=== PATIENT | male | born 1955 | race Asian ===

== ENCOUNTER 2021-05-15 10:16 | Outpatient (REF) | payer OTHER, SELFPAY ==
[2021-05-15 10:39] LABS: Basophils Percent Auto 0.9 % (0-2); Eosinophils Absolute Auto 0.1 X10*3/uL (0.0-0.4); Eosinophils Percent Auto 2.2 % (0-4); Hematocrit 44.9 % (42-52); Hemoglobin 15.2 g/dl (14.0-18.0); Imm Gran Abs Auto 0.02 X10*3/uL (0.00-0.03); Imm Gran Pct Auto 0.4 % (0.0-0.4); Lymphocytes Percent Auto 22.5 % (20-40); MANUAL DIFF FLAG NO; Mean Corpuscular HGB Conc 33.9 g/dl (31.0-36.0); Mean Corpuscular Hemoglobin 30.3 pg (27.0-33.0); Mean Corpuscular Volume 89.6 fL (80-98); Mean Platelet Volume 9.7 fL (9.4-12.4); Monocytes Absolute Auto 0.3 X10*3/uL (0.1-1.2); Monocytes Percent Auto 7.3 % (2-11); Neutrophils Percent Auto 66.7 % (45-73); Platelet Count 159 X10*3/uL (160-400); Red Blood Count 5.01 X10*6/uL (4.60-5.80); Red Cell Distribution Width 12.3 % (11.0-16.0); White Blood Count 4.5 X10*3/uL (4.8-10.8)
[2021-05-15 10:58] LABS: Appearance Urine CLEAR; Color Urine YELLOW; Glucose Urine UA NEG (NEG); Leukocyte Esterase Urine NEG (NEG); Nitrite Urine NEG (NEG); PH 6.5 (5.0-8.0); Specific Gravity - Urine <= 1.005 (1.005-1.025); Urine Blood NEG (NEG); Urine Ketones NEG (NEG); Urine Protein NEG (NEG-TRACE)
[2021-05-15 11:18] LABS: Alanine Aminotransferase 47 U/L (0-40); Albumin Level 4.7 g/dL (3.5-5.0); Alkaline Phosphatase 65 U/L (39-117); Anion Gap 10 (12-20); Aspartate Amino Transferase 33 U/L (5-37); Bilirubin Total 0.6 mg/dL (0.0-1.0); Blood Urea Nitrogen 13 mg/dL (9-16); Calcium 9.4 mg/dL (8.4-10.2); Carbon Dioxide 31 mmol/L (22-29); Chloride 103 mmol/L (96-108); Cholesterol 164 mg/dL; Estimated Glomerular Filt Rate > 60; Glucose Fasting 105 mg/dL (60-99); HDL Cholesterol 40 mg/dL; LDL Cholesterol Calculated 104 mg/dl; Sodium 140 mmol/L (135-145); Total Protein 7.7 g/dL (6.5-8.0); Triglycerides 101 mg/dL
[2021-05-15 11:39] LABS: Prostate Specific Antigen 1.64 ng/mL (<0.05-4.0); TSH reflex Free T4 0.56 uIU/mL (0.32-4.0); Vitamin D 25-OH Total 24.8 ng/mL (>30)
== END 2021-05-15 10:17 | disposition home or self-care (01) ==
LOC: HO.LAB 10:16
PROVIDERS: PCP Internal Medicine; Visit Provider Internal Medicine
DX: Z12.5 Encounter for screening for malignant neoplasm of prostate (principal); I10 Essential (primary) hypertension; E78.00 Pure hypercholesterolemia, unspecified; R35.0 Frequency of micturition; E55.9 Vitamin D deficiency, unspecified
CPT/HCPCS: 36415; 80053; 80061; 81003; 82306; 84153; 84443; 85025

== ENCOUNTER 2021-05-30 13:47 | Emergency (ER) | payer OTHER, SELFPAY ==
--- NOTE | ~2021-05-30 | XR_ITS ---
EXAMINATION: XR ABDOMEN KUB CLINICAL INDICATION: Constipation, incomplete emptying COMPARISON: None TECHNIQUE: AP view of the abdomen. FINDINGS: The bowel gas pattern is normal with no evidence of ileus or obstruction. No unusual soft tissue calcifications are noted. The bones are unremarkable. Moderate amount of stool within the right colon. XR/XR KUB IMPRESSION: Moderate amount of stool in the right colon.
[2021-05-30 17:17] VITALS: BP 169/107; PULSE 74; RESP 16; TEMP 37.1; O2SAT 100; BMI 23.5
[2021-05-30 18:17] LABS: MANUAL DIFF FLAG NO
[2021-05-30 18:36] LABS: Alanine Aminotransferase 52 U/L (0-40); Albumin Level 4.7 g/dL (3.5-5.0); Alkaline Phosphatase 64 U/L (39-117); Anion Gap 11 (12-20); Aspartate Amino Transferase 32 U/L (5-37); Bilirubin Direct 0.3 mg/dL (0.0-0.5); Bilirubin Total 0.7 mg/dL (0.0-1.0); Blood Urea Nitrogen 15 mg/dL (9-16); Calcium 9.3 mg/dL (8.4-10.2); Carbon Dioxide 27 mmol/L (22-29); Chloride 103 mmol/L (96-108); Estimated Glomerular Filt Rate > 60; Glucose Random 113 mg/dL (60-115); Lipase 39 U/L (8-78); Potassium 3.9 mmol/L (3.3-5.1); Sodium 137 mmol/L (135-145); Total Protein 7.8 g/dL (6.5-8.0)
[2021-05-30 18:39] LABS: Basophils Percent Auto 0.7 % (0-2); Eosinophils Absolute Auto 0.1 X10*3/uL (0.0-0.4); Eosinophils Percent Auto 1.4 % (0-4); Hematocrit 41.9 % (42-52); Imm Gran Abs Auto 0.04 X10*3/uL (0.00-0.03); Imm Gran Pct Auto 0.7 % (0.0-0.4); Lymphocytes Absolute Auto 1.1 X10*3/uL (1.2-4.9); Lymphocytes Percent Auto 18.2 % (20-40); Mean Corpuscular HGB Conc 35.8 g/dl (31.0-36.0); Mean Corpuscular Hemoglobin 31.7 pg (27.0-33.0); Mean Corpuscular Volume 88.6 fL (80-98); Mean Platelet Volume 10.5 fL (9.4-12.4); Monocytes Absolute Auto 0.5 X10*3/uL (0.1-1.2); Monocytes Percent Auto 8.6 % (2-11); Neutrophils Absolute Auto 4.1 X10*3/uL (2.0-8.3); Neutrophils Percent Auto 70.4 % (45-73); Platelet Count 141 X10*3/uL (160-400); Red Blood Count 4.73 X10*6/uL (4.60-5.80); Red Cell Distribution Width 12.3 % (11.0-16.0); White Blood Count 5.8 X10*3/uL (4.8-10.8)
[2021-05-30 18:40] LABS: Appearance Urine CLEAR; Color Urine YELLOW; Glucose Urine UA NEG (NEG); Leukocyte Esterase Urine NEG (NEG); Nitrite Urine NEG (NEG); UACC Culture Trigger NO; Urine Blood TRACE (NEG); Urine Ketones NEG (NEG); Urine Protein NEG (NEG-TRACE)
--- NOTE | 2021-05-30 18:52 | ED_ITS ---
HPI - General Adult General Chief complaint: General Medical Stated complaint: urinary issue Time Seen by Provider: 05/30/21 17:16 Source: patient Mode of arrival: ambulatory History of Present Illness HPI narrative: 65-year-old male with a past medical history appendectomy, left inguinal hernia repair, presenting to the ED complaining of urinary frequency, dysuria, rectal pain and sensation of incomplete bowel emptying x weeks. Also reports lower abdominal discomfort. Reports was seen by PCP and referred to GI but unable to see until next week. Denies fever, chills, nausea, vomiting, penile/scrotal pain, hemorrhoids, rectal bleeding/melena, diarrhea, hesitancy, penile discharge. Is minimally sexually active without concern for STI Related Data Previous Rx's Medication Instructions Recorded sennosides 8.6 mg tablet (senna) See Rx Instructions PO DAILY PRN 05/15/21 30 Days #60 tab mineral oil (Fleet Mineral Oil) 118 ml ME DAILY PRN #6384 ml 05/30/21 Allergies Allergy/AdvReac Type Severity Reaction Status Date / Time No Known Allergies Allergy Verified 05/15/21 10:01 [No Known Allergies*] Review of Systems Review of Systems: Constitutional: No Fever, No Chills, No Fatigue, No Malaise ENT/Mouth: No Ear Pain, No Nasal Congestion, No sore throat, No Rhinorrhea, No Swallowing Difficulty Eyes: No Eye Pain, No Discharge Cardiovascular: No Chest Pain, No SOB, No Dyspnea on Exertion, No Orthopnea Respiratory: No Cough, No Dyspnea Gastrointestinal: No Nausea, No Vomiting, No Diarrhea, + Constipation, + Abdominal pain Genitourinary: +Dysuria, + Urinary Frequency, No Hematuria, No Urinary Incontinence, No Urgency, No Flank Pain, No Urinary Flow Changes, No Hesitancy Musculoskeletal: No joint pain, No Myalgias, No Joint Swelling Skin: No Skin Lesions, No rash Neuro: No Weakness, No Numbness, No Paresthesias, No Loss of Consciousness, No Dizziness, No Headache Yes all other systems are reviewed and are negative [facility] Past Medical History Attestation statement: The following information was validated with the patient. Medical History Left foot pain Surgical History H/O colonoscopy H/O left inguinal hernia repair History of appendectomy Family History Family History Father Diabetes HTN (hypertension) Mother No problems noted. Social History Social History Housing: House Alcohol intake: never Patient Tobacco Use Status: Never used Tobacco Second Hand Smoke Exposure: No Use of substances other than those prescribed or required for medical reasons: No Advance Directives: No service: No Current occupational status: retired Physical Exam Vital Signs: Vital Signs: Last Vital Signs Temp 98.8 F 05/30/21 17:17 Pulse 54 05/30/21 19:11 Resp 15 05/30/21 19:11 BP 153/73 H 05/30/21 19:11 Pulse Ox 99 05/30/21 19:11 Body Mass Index 23.5 Const: General: cooperative, healthy appearing and no acute distress Orientation/consciousness: patient oriented x3 Limitations: no limitations HENMT: Head: Yes normal to inspection Ears: hearing grossly normal bilaterally General nose exam: Normal external nose present Face and sinus: Yes normal facial exam Eyes: General: appearance normal, both eyes and all related structures EOM: EOMs intact bilaterally Neck: Neck: Yes normal visual inspection Resp: Effort & Inspection: normal respiratory effort and no respiratory distress Cardio: Rate: regular rate Heart sounds: S1 normal heart sound present and S2 normal heart sound present GI: Inspection: Yes normal to inspection Palpation (GI): Soft to palpation, nontender, no guarding and not rigid Rectal Exam - Male: No decreased sphincter tone, Yes prostate normal, No Lesions present (GI), No Fistula present (GI), No Laceration(s) present (GI), No fecal impaction, No hemorrhoids and No tenderness : General: Yes no CVA tenderness Male General Exam: Yes normal external exam Penis: normal penis and uncircumcised Meatus: meatus normal Scrotum: scrotum normal and no scrotal swelling Testes: Testes normal and no testicular tenderness Back/Spine/Pelvis: Back: no CVA tenderness Skin: Rashes: no rashes Wounds: no wounds Neuro: General: patient oriented x3 Gait exam (Neuro): Normal gait present Extrem: General: Yes normal to inspection Course Course Course Narrative: -no leukocytosis. Labs otherwise unremarkable, UA negative XR KUB IMPRESSION: Moderate amount of stool in the right colon. >> patient given MiraLax. Results discussed including need follow-up with GI. He verbalized understanding feel safe for discharge home Medical Decision Making MDM Narrative Medical decision making narrative: 65-year-old male with a past medical history appendectomy, left inguinal hernia repair, presenting to the ED complaining of urinary frequency, dysuria, rectal pain and sensation of incomplete bowel emptying x weeks. On exam hypertensive, NAD/nontoxic, abdomen soft/nontender, exam WNL/no scrotal tenderness/abnormality, rectal exam WNL. Concern for constipation vs SBO vs UTI vs enlarged prostate Plan: Labs, UA, KUB, re-evaluate Lab Data Result diagrams: 05/30/21 18:12 05/30/21 18:12 Labs: Lab Results 05/30/21 05/30/21 05/30/21 Range/Units 18:07 18:12 18:12 WBC 5.8 (4.8-10.8) X10*3/uL RBC 4.73 (4.60-5.80) X10*6/uL Hgb 15.0 (14.0-18.0) g/dl Hct 41.9 L (42-52) % MCV 88.6 (80-98) fL MCH 31.7 (27.0-33.0) pg MCHC 35.8 (31.0-36.0) g/dl RDW 12.3 (11.0-16.0) % Plt Count 141 L (160-400) X10*3/uL MPV 10.5 (9.4-12.4) fL Immature Gran % (Auto) 0.7 H (0.0-0.4) % Neut % (Auto) 70.4 (45-73) % Lymph % (Auto) 18.2 L (20-40) % [place] % (Auto) 8.6 (2-11) % Eos % (Auto) 1.4 (0-4) % Baso % (Auto) 0.7 (0-2) % Lymph # (Auto) 1.1 L (1.2-4.9) X10*3/uL [place] # (Auto) 0.5 (0.1-1.2) X10*3/uL Eos # (Auto) 0.1 (0.0-0.4) X10*3/uL Baso # (Auto) 0.0 (0.0-0.2) X10*3/uL Abs Immat Gran (auto) 0.04 H (0.00-0.03) X10*3/uL Absolute Neuts (auto) 4.1 (2.0-8.3) X10*3/uL Absolute Nucleated RBC 0.000 (0.0-0.012) X10*3/uL Nucleated RBC % (auto) 0.0 (0.0-0.2) /100WBC Sodium 137 (135-145) mmol/L Potassium 3.9 (3.3-5.1) mmol/L Chloride 103 (96-108) mmol/L Carbon Dioxide 27 (22-29) mmol/L Anion Gap 11 L (12-20) BUN 15 (9-16) mg/dL Creatinine 0.84 (0.5-1.4) mg/dL Estim Creat Clear Calc 83.0 Estimated GFR > 60 Random Glucose 113 (60-115) mg/dL Calcium 9.3 (8.4-10.2) mg/dL Total Bilirubin 0.7 (0.0-1.0) mg/dL Direct Bilirubin 0.3 (0.0-0.5) mg/dL AST 32 (5-37) U/L ALT 52 H (0-40) U/L Alkaline Phosphatase 64 (39-117) U/L Total Protein 7.8 (6.5-8.0) g/dL Albumin 4.7 (3.5-5.0) g/dL Lipase 39 (8-78) U/L Urine Color YELLOW Urine Appearance CLEAR Urine pH 6.0 (5.0-8.0) Ur Specific Concrete 1.010 (1.005-1.025) Urine Protein NEG (NEG-TRACE) MG/DL Urine Glucose (UA) NEG (NEG) MG/DL Urine Ketones NEG (NEG) MG/DL Urine Blood TRACE (NEG) Urine Nitrite NEG (NEG) Ur Leukocyte Esterase NEG (NEG) Urine RBC 0-2 (0) /HPF Urine WBC 0 (0-4) /HPF Ur Squamous Epith Cells NONE /LPF Urine Bacteria NONE /LPF Discharge Plan Discharge Clinical Impression: Constipation Qualifiers: Constipation type: unspecified constipation type Qualified Code(s): K59.00 - Constipation, unspecified Patient Disposition: Home, Self-Care Instructions: Constipation (ED), High Fiber Diet (ED), Fleet Enema (ED) Additional Instructions: Your blood work is reassuring. Her urine is not infected Your x-ray shows a large amount of stool in her colon Continue taking previously prescribed senna which will help with her constipation In addition you sleepy enema If her not having a bowel movement 48 hours, pain becomes unbearable, have nausea/vomiting or fevers return to the ED Please follow-up with your primary care doctor in GI Prescriptions: New mineral oil [Fleet Mineral Oil] Enema 118 ml ME DAILY PRN (Reason: constipation) Qty: 6384 RF: 0 No Action sennosides [senna] 8.6 mg tablet See Rx Instructions PO DAILY PRN (Reason: constipation) 30 Days Qty: 60 RF: 3 Referrals: John Gunderson MD [Primary Care Provider] - 2 days Dewayne Conroy [Physician] - 2 days
[2021-05-30 18:55] LABS: RBC Urine 0-2 /HPF (0); WBC Urine 0 /HPF (0-4)
[2021-05-30] MEDS: polyethylene glycoL 3350 17 GM POWD.PACK PO (19:09)
[2021-05-30 19:11] VITALS: BP 153/73; PULSE 54; RESP 15; O2SAT 99
== END 2021-05-30 20:15 | disposition home or self-care (01) ==
PROVIDERS: Physician Assistant; Emergency Provider Emergency Medicine; PCP Internal Medicine
DX: K59.00 Constipation, unspecified (principal); Z90.89 Acquired absence of other organs
CPT/HCPCS: 36415; 74018; 80048; 80076; 81001; 83690; 85025; 99283; 99284

== ENCOUNTER → 2021-06-03 14:14 | Outpatient (BNVA) | payer OTHER, SELFPAY | PROVIDERS: PCP Internal Medicine; Referring Provider Internal Medicine; Visit Provider Nurse Practitioner Family ==

== ENCOUNTER 2021-07-04 09:31 | Day surgery (SDC) | payer OTHER, SELFPAY ==
[2021-06-30 13:30] VITALS: BMI 23.6
--- NOTE | 2021-07-03 11:48 | HO.ANESPROP2 ---
Documented by User: Didi Holland NP 07/03/21 11:50 HPI - Anesthesia Eval Consult details Narrative: 65yo M for Colonoscopy [facility] Active Problems Active Problems: All Active Problems (Updated 05/30/21 @ 20:00 by GREGG Ray) Constipation (Acute) Urinary frequency (Acute) Left foot pain (Acute) Mass in the abdomen (Acute) Past Medical History Medical History Left foot pain Family History Family History Father Diabetes HTN (hypertension) Mother No problems noted. Surgical History Surgical History H/O colonoscopy H/O left inguinal hernia repair History of appendectomy Social History Social History Housing: House Alcohol intake: never Patient Tobacco Use Status: Never used Tobacco Second Hand Smoke Exposure: No Advance Directives: No Advance Directives Information Provided: Yes service: No Current occupational status: retired [employer] Allergies Allergy/AdvReac Type Severity Reaction Status Date / Time No Known Allergies Allergy Verified 06/04/21 10:10 [No Known Allergies*] Exam Exam Date and Time: July 03, 2021 1148 Height,Weight and Vital Signs: Height 5 ft 7 in Weight 68.492 kg Pertinent Lab Results Pertinent Lab Results: Laboratory Tests 05/30/21 05/30/21 18:12 18:12 WBC 5.8 Hgb 15.0 Hct 41.9 L Plt Count 141 L Sodium 137 Potassium 3.9 Chloride 103 Carbon Dioxide 27 BUN 15 Creatinine 0.84 Assessment and Plan Assessment Anesthesia Assessment: Chart Reviewed Documented by User: Marya Mendoza MD 07/04/21 10:22 PMFSH Past Medical History Medical History Left foot pain Family History Family History Father Diabetes HTN (hypertension) Mother No problems noted. Family history of problems with anesthesia: No Surgical History Surgical History H/O colonoscopy H/O left inguinal hernia repair History of appendectomy History of Problems with Anesthesia: No Social History Social History Housing: House Alcohol intake: never Patient Tobacco Use Status: Never used Tobacco Second Hand Smoke Exposure: No Advance Directives: No Advance Directives Information Provided: Yes service: No Current occupational status: retired [employer] Allergies Allergy/AdvReac Type Severity Reaction Status Date / Time No Known Allergies Allergy Verified 06/04/21 10:10 [No Known Allergies*] Exam Airway Mallampati Class: III TM Dist: >3cm Neck ROM: Full Assessment and Plan Assessment Anesthesia Assessment: Anesthesia Plan Discussed Final Anesthetic Review Family History of Problems with Anesthesia: No History of Problems with Anesthesia: No NPO: Yes ASA Class: II Final Preanesthetic Review: No Changes in Pt Med Stat, Meds/Allgs Chart Reviewed, Consent Obtained/Reviewed and Anes Risks/Benef Reviewed Patient Risk: Low Procedure Risk: Low Anesthetic Plan Anesthetic Plan: MAC: Disposition: Standard PACU
[2021-07-04 10:29] VITALS: BP 137/73; PULSE 56; RESP 16; TEMP 36.4; O2SAT 99; BMI 23.9
[2021-07-04] MEDS: Lactated Ringers 1,000 ML 100 ML IVCONT (10:35)
--- NOTE | 2021-07-04 11:31 | MHC.SHP ---
Pre-Procedural Eval Section A Date of Service: 07/04/21 The patient is an INPATIENT: No The History & Physical has been completed within 30 days and I have reviewed it.: No Section B Chief Complaint: screening Relevant Family History (Specify if Yes): No Relevant Social History: None Present Medications: see Short Stay Collaborative assessment Medical History: Significant History (Left foot pain) History of Previous Operations: Relevant previous surgery/procedure and date(s) (H/O colonoscopy H/O left inguinal hernia repair History of appendectomy) Allergies: Allergies Allergy/AdvReac Type Severity Reaction Status Date / Time No Known Allergies Allergy Verified 06/04/21 10:10 [No Known Allergies*] Review of Systems Sugical H&P ROS: Negative: Constitution, Cardiovascular and Respiratory and Yes, Specify: Gastrointestinal (anal pain) Exam Surgical H&P Exam: Normal: Heart, Normal: Lungs, Normal: Extremities and Normal: Abdomen Plan Diagnosis/Plan: Unchanged I have reviewed the history and physical and performed a pertinent physical examination on my patient. No changes have occurred unless specified.
--- NOTE | 2021-07-04 11:40 | PM.OP ---
Brief Operative Note Date of Service: 07/04/21 Pre-op diagnosis: Colon cancer screening Post-op diagnosis: other (Colon polyps, diverticulosis, hemorrhoids) Procedure: COLONOSCOPY TILL CECUM WITH BIOPSIES AND SNARE POLYPECTOMY Consent: Indications for the procedure and potential complications of bleeding, perforation, reaction to medications and missed diagnosis were discussed with the patient and informed consent was obtained. Instrument: Olympus PCF H 190 L variable stiffness pediatric colonoscope Monitoring: Vital signs and clinical assessment, intermittent blood pressure monitoring, continuous EKG monitoring, Pulse oximetry and Carbon Dioxide monitoring were done throughout the procedure. Colon withdrawl time was 23 minutes. Procedure: The patient was placed in the left lateral decubitis position and pre-procedure medications were administered. After a digital rectal examination of the ano-rectum, the video colonoscope was inserted into the rectum and advanced through the colon to the cecum. The colonoscope was slowly withdrawn in a retrograde panoramic fashion and the colon mucosa was carefully examined including a retroflexed view of the rectum. Findings and interventions are described below. Procedure Difficulty: Without difficulty Findings: Terminal Ileum: Not evaluated Cecum: Normal Ascending Colon: A 4-5 mm ? flat/diminutive polyp in distal AC removed with a cold bx. Transverse Colon: Normal Descending Colon: Normal Sigmoid Colon: A 9-10 mm sessile polyp removed with a cold snare. Residual polyp removed with a cold bx. A 4-5 mm sessile polyp removed with a cold bx. Moderate diverticulosis Rectum: Normal Ano-rectum: Moderate internal hemorrhoids Colon preparation: Good Impression and Post Procedure Diagnosis: Colonoscopy Findings: Three small to medium sized polyps removed Moderate diverticulosis seen in the sigmoid colon Moderate hemorrhoids on retroflexed exam. Plan: Await pathology results Patient has an appointment on 07/18/21 in the GI Clinic with Lala Edwards FNP-BC. Repeat Colonoscopy interval based on path results - in 3-5 years if polyps are adenomatous and 10 years if polyps are hyperplastic. Above findings were reviewed with the patient and colon polyps and diverticulosis handouts were given in the discharge area Surgeon: Jacquie Dahl MD Anesthesia: MAC (Carrillo Hi CRNA) Was an Crown Perforator Operator used for this Procedure?: Yes Crown Perforator Operator: Dominique Douglas Estimated blood loss (mL): 0 Pathology: other (A. ascending colon polyp B. sigmoid polyps (2)) Condition: stable Disposition: PACU
[2021-07-04 12:20] VITALS: BP 90/50; PULSE 60; RESP 12; TEMP 36.6; O2SAT 100
--- NOTE | 2021-07-04 12:21 | W.PM.OPN ---
Operative Note Operative Note Date of Service: 07/04/21 Narrative: Pre-op diagnosis:?Colon cancer screening Post-op diagnosis:?other (Colon polyps, diverticulosis, hemorrhoids) Procedure:? COLONOSCOPY TILL CECUM WITH BIOPSIES AND SNARE POLYPECTOMY Consent: Indications for the procedure and potential complications of bleeding, perforation, reaction to medications and missed diagnosis were discussed with the patient and informed consent was obtained. Instrument: Olympus PCF H 190 L variable stiffness pediatric colonoscope Monitoring: Vital signs and clinical assessment, intermittent blood pressure monitoring, continuous EKG monitoring, Pulse oximetry and Carbon Dioxide monitoring were done throughout the procedure. Colon withdrawl time was 23 minutes. Procedure: The patient was placed in the left lateral decubitis position and pre-procedure medications were administered. After a digital rectal examination of the ano-rectum, the video colonoscope was inserted into the rectum and advanced through the colon to the cecum. The colonoscope was slowly withdrawn in a retrograde panoramic fashion and the colon mucosa was carefully examined including a retroflexed view of the rectum. Findings and interventions are described below. Procedure Difficulty: Without difficulty Findings: Terminal Ileum: Not evaluated Cecum:? Normal Ascending Colon:? A 4-5 mm ? flat/diminutive polyp in distal AC removed with a cold bx. Transverse Colon:? Normal Descending Colon:? Normal Sigmoid Colon:? A 9-10 mm sessile polyp removed with a cold snare. ? Residual polyp removed with a cold bx. A 4-5 mm sessile polyp removed with a cold bx.? Moderate diverticulosis Rectum:? Normal Ano-rectum:? Moderate internal hemorrhoids Colon preparation:? Good? Impression and Post Procedure Diagnosis: Colonoscopy Findings: Three small to medium sized polyps removed Moderate diverticulosis seen in the sigmoid colon Moderate hemorrhoids on retroflexed exam. Plan: Await pathology results Patient has an appointment on 07/18/21 in the GI Clinic with ? Lala Edwards, MADYSON-TA. Repeat Colonoscopy interval based on path results - in 3-5 years if polyps are adenomatous and 10 years if polyps are hyperplastic. Above findings were reviewed with the patient and colon polyps and diverticulosis handouts were given in the discharge area Surgeon:?Jacquie Dahl MD Anesthesia:?MAC (Carrillo Hi CRNA) Was an Docket Clerk used for this Procedure?:?Yes Docket Clerk:?Dominique Douglas Estimated blood loss (mL):?0 Pathology:?other (A. ascending colon polyp? B. sigmoid polyps (2)) Condition:?stable Disposition:?PACU
[2021-07-04 12:35] VITALS: BP 90/51; PULSE 50; RESP 16; O2SAT 100
[2021-07-04 12:50] VITALS: BP 125/69; PULSE 57; RESP 16; TEMP 36.6; O2SAT 100
== END 2021-07-04 13:25 | disposition home or self-care (01) ==
PROVIDERS: PCP Internal Medicine; Visit Provider Internal Medicine Gastroenterology
PROC: 0DJD8ZZ Inspection of Lower Intestinal Tract, Via Natural or Artificial Opening Endoscopic (ICD-10-PCS; CPT 45378; principal; 2021-07-04 10:50)
DX: Z12.11 Encounter for screening for malignant neoplasm of colon (principal); D12.5 Benign neoplasm of sigmoid colon; K63.5 Polyp of colon; K57.30 Diverticulosis of large intestine without perforation or abscess without bleeding; K64.8 Other hemorrhoids; K59.00 Constipation, unspecified
CPT/HCPCS: 45385; 45380; 88305

== ENCOUNTER → 2021-07-18 14:07 | Outpatient (BNVA) | payer OTHER, SELFPAY | PROVIDERS: PCP Internal Medicine; Referring Provider Internal Medicine; Visit Provider Nurse Practitioner Family | DX: K59.00 Constipation, unspecified (principal); K64.8 Other hemorrhoids; D36.9 Benign neoplasm, unspecified site; Z98.890 Other specified postprocedural states | CPT/HCPCS: 99212 ==

== ENCOUNTER 2022-08-18 12:40 | Outpatient (AMB) | payer MEDICARE, MEDICAID, SELFPAY ==
[2022-08-18 12:47] VITALS: BP 130/62; PULSE 67; TEMP 36.2; O2SAT 97; BMI 24.3
--- NOTE | 2022-08-18 12:47 | MHC.PC.OV ---
Vital Signs 08/18/22 12:47 Height 5 ft 7 in Weight 155 lb BMI 24.3 BP 130/62 Blood Pressure Location Lt brachial Position Sitting Pulse 67 Pulse Source Pulse Oximeter Temp 97.1 F Temp Source Skin Pulse Oximetry (%) 97 Oxygen Delivery Method Room Air Intake Visit Reasons: Annual Exam- secondary ins covers PE Allergies No Known Allergies [No Known Allergies*] Allergy (Verified 08/20/23 09:13) Medication List - Last Reconciled 08/18/22 by John Gunderson MD cholecalciferol (vitamin D3) 25 mcg PO DAILY 90 days docusate sodium 100 mg PO BEDTIME Tobacco use date assessed: 08/15/21 HPI Annual Exam- secondary ins covers PE HPI Details Patient comes in today for his annual physical examination States that he feels well He denies any headaches or dizziness Denies any chest pains, no SOB No nausea/vomiting, no abdominal pain No change in bowel habits noted - takes OTC stool softeners as-needed when he gets constipated at times Denies any acute urinary symptoms Had his colonoscopy done just over a year ago in 07/2021 - (+) tubular adenoma and was recommended to undergo repeat colonoscopy in 3 years, which would be sometime in 07/2024 [facility] Medical History (Updated 08/20/23 @ 09:33 by John Gunderson MD) Overweight (BMI 25.0-29.9) Vitamin D deficiency Tubular adenoma Internal hemorrhoid Left foot pain Surgical History H/O left inguinal hernia repair H/O colonoscopy (~07/04/21) History of appendectomy Family History Father Diabetes HTN (hypertension) Mother No problems noted. Social History Housing: House Alcohol intake: never Patient Tobacco Use Status: Never used Tobacco e-Cigarette/Vaping Use: Never Used Second Hand Smoke Exposure: No service: No Current occupational status: retired Cognitive needs: No Hearing needs: No Vision needs: No Questionnaire PHQ-9 Over the last 2 weeks, how often have you been bothered by any of the following problems? 1. Little interest or pleasure in doing things: not at all 2. Feeling down, depressed, or hopeless: not at all 3. Trouble falling or staying asleep, or sleeping too much: not at all 4. Feeling tired or having little energy: not at all 5. Poor appetite or overeating: not at all 6. Feeling bad about yourself - or that you are a failure or have let yourself or your family down: not at all 7. Trouble concentrating on things, such as reading the newspaper or watching television: not at all 8. Moving or speaking so slowly that other people could have noticed. Or the opposite - being so fidgety or restless that you have been moving around a lot more than usual: not at all 9. Thoughts that you would be better off or of hurting yourself in some way: not at all Total score: 0 Depression Screening Interpretation: Negative 55649 - PHQ-9 Billing: Yes Source: Developed by Drs. Dewayne Gamez, Rafia Strauss, Mynor Arellano and colleagues, with an educational magali from [employer]. Thrive Questionnaire Date Thrive assessed: 08/18/22 I am a: Patient What is your living situation today?: I have a steady place to live Within the past 12 months, did the food you bought not last and you didn't have the money to get more?: Never true Within the past 12 months, did you worry whether your food would run out before you got money to buy more?: Never true Do you have trouble paying for medicines?: No Do you have trouble getting transportation to medical appointments?: No Do you have trouble paying your heating and electricity bill?: No Do you have trouble taking care of your child, family member or friend?: No Do you have trouble with day-to-day activities such as bathing, preparing meals, shopping, managing finances, etc.?: No Are you currently unemployed and looking for a job?: No Are you interested in more education?: No Currently or been in a relationship where the following occur: no concerns reported AUDIT C Alcohol Use Questionnaire (AUDIT-C) 1. How often do you have a drink containing alcohol?: Never 3. How often do you have six or more drinks on one occasion?: Never Total Score: 0 Score Reviewed/Action Taken: Yes STEVO-7 AMB Questionnaire STEVO-7 Date STEVO - 7 assessed: 08/15/21 Source: Developed by Drs. Dewayne Gamez, Rafia Strauss, Mynor Arellano and colleagues, with an educational magali from [employer]. Review of Systems Const Denies chills, Denies fatigue, Denies fever(s), Denies headache(s) and Denies malaise Eyes Denies blurry vision, Denies change in vision, Denies irritation and Denies itchy eyes ENT Denies dysphagia, Denies dizziness, Denies otalgia, Denies headache(s), Denies nasal congestion, Denies neck pain, Denies odynophagia and Denies sore throat Card Denies chest pain, Denies rapid heart rate, Denies irregular heart rhythm, Denies palpitations and Denies dyspnea Resp Denies chest congestion, Denies cough, Denies dyspnea and Denies wheezing GI Denies abdominal pain, Denies bloating, Denies change in bowel habits, Reports constipation (occasionally), Denies dysphagia, Denies heartburn, Denies diarrhea, Denies nausea, Denies odynophagia and Denies vomiting Denies hematuria, Denies difficulty urinating, Denies dysuria, Denies testicular mass, Denies testicular pain, Denies urinary frequency, Denies urinary incontinence and Denies urinary urgency Musc Denies back pain, Denies arthralgias, Denies joint swelling, Denies muscle weakness and Denies neck pain Skin/Breast Denies change in pigmentation, Denies lesions, Denies rash and Denies unusual bruising Neuro Denies dizziness, Denies headache(s) and Denies paresthesias Endo Denies fatigue and Denies palpitations Aller/Immun Denies itchy eyes and Denies wheezing Physical exam (Primary Care) Vital Signs: Last Vital Signs Temp 97.1 F 08/18/22 12:47 Pulse 67 08/18/22 12:47 BP 130/62 08/18/22 12:47 Pulse Ox 97 08/18/22 12:47 Oxygen Delivery Method Room Air 08/18/22 12:47 BMI result Body Mass Index 24.3 Tobacco/Smoking Status: Tobacco use Status Tobacco use date assessed 08/15/21 08/18/22 12:48 Patient Tobacco Use Status Never used Tobacco 08/18/22 12:48 PHQ-9: PHQ-9 Score PHQ-9: Total score 0 08/18/22 13:30 Depression Screening Interpretation: Negative Thrive Assessment: Date of Thrive Assessment Date Thrive assessed 08/18/22 08/18/22 13:30 Currently or been in a relationship where the following occur: no concerns reported Const General: no acute distress, alert and awake Orientation/consciousness: patient oriented x3 HENMT Head: Yes normocephalic and Yes atraumatic Ears: external ears normal, TM's normal bilaterally and EAC's normal General nose exam: No nasal discharge present Face and sinus: Yes normal facial exam and Yes sinuses nontender Teeth and gingiva: dentition normal Throat: Yes posterior oropharynx normal and Yes tonsils normal (no TP congestion) Eyes Eyelids: Yes eyelids normal Conjunctivae: conjunctivae normal Pupils: Equal, round and reactive pupils present EOM: EOMs intact bilaterally Neck Neck: Yes no lymphadenopathy and Yes supple Thyroid: Thyroid normal Resp Auscultation: clear to auscultation bilaterally, no rales and no wheezes Cardio Rate: regular rate Rhythm: regular rhythm Heart sounds: no murmurs GI Palpation (GI): Soft to palpation, nontender and No hepatosplenomegaly present Auscultation: normal bowel sounds General: Yes no CVA tenderness Back/Spine/Pelvis Back: no CVA tenderness Thoracic/Lumbar Spine: thoracic and lumbar spine normal to inspection Skin Lesions: no lesions Rashes: no rashes Neuro General: patient oriented x3, moves all extremities, no focal motor deficits and CN's II-XI intact bilaterally Cranial nerves: Yes CN's II-XII intact bilaterally and Yes Equal, round and reactive pupils present Extrem General: Yes no clubbing, cyanosis or edema Assessment and Plan Assessment & Plan (1) Annual physical exam: Code(s): Z00.00 - Encounter for general adult medical examination without abnormal findings Plan: Check labs Has not had any follow up labs done since 05/2021 He is due for repeat colonoscopy sometime at the end of 2023 (2) Constipation: Code(s): K59.00 - Constipation, unspecified Qualifiers: Constipation type: unspecified constipation type Qualified Code(s): K59.00 - Constipation, unspecified Plan: Reinforced increased oral fluids and dietary fiber Continue Docusate 100 mg Q PM PRN (3) Impaired fasting glucose: Code(s): R73.01 - Impaired fasting glucose Plan: Reinforced low calorie diet Will check HgbA1c in 6 months for further evaluation (4) Vitamin D deficiency: Code(s): E55.9 - Vitamin D deficiency, unspecified Plan: Continue OTC Vitamin D3 1000 units daily Plan To return in 1 year for his next annual physical examination Orders: Orders Complete Blood Count Auto Diff 08/18/22 Z00.00 - Encounter for general adult medical examination without abnormal findings Comprehensive [place]. Panel Fast 08/18/22 Z00.00 - Encounter for general adult medical examination without abnormal findings TSH reflex Free T4 08/18/22 Z00.00 - Encounter for general adult medical examination without abnormal findings Hemoglobin A1c 08/18/22 Z00.00 - Encounter for general adult medical examination without abnormal findings, R73.01 - Impaired fasting glucose Lipid Panel 08/18/22 E78.00 - Pure hypercholesterolemia, unspecified, Z00.00 - Encounter for general adult medical examination without abnormal findings UA CC w/rflx Micro + Cult 08/18/22 R30.0 - Dysuria, Z00.00 - Encounter for general adult medical examination without abnormal findings Vitamin D 25-OH Total 08/18/22 E55.9 - Vitamin D deficiency, unspecified, Z00.00 - Encounter for general adult medical examination without abnormal findings Prostate Specific Antigen 08/18/22 N40.0 - Benign prostatic hyperplasia without lower urinary tract symptoms, Z00.00 - Encounter for general adult medical examination without abnormal findings Coding Level of Care Code Est Pt Prev Care >65y(77929) Diagnoses Annual physical exam Z00.00 Constipation K59.00 Constipation type: unspecified constipation type Impaired fasting glucose R73.01 Vitamin D deficiency E55.9
== END 2022-08-18 13:37 | disposition home or self-care (01) ==
LOC: HO.HMGH 12:40
PROVIDERS: PCP Internal Medicine; Visit Provider Internal Medicine
DX: Z00.00 Encounter for general adult medical examination without abnormal findings (principal); K59.00 Constipation, unspecified; R73.01 Impaired fasting glucose; E55.9 Vitamin D deficiency, unspecified
CPT/HCPCS: 99397

== ENCOUNTER 2022-09-01 08:05 | Outpatient (REF) | payer MEDICARE, MEDICAID, SELFPAY ==
[2022-09-01 08:19] LABS: MANUAL DIFF FLAG NO
[2022-09-01 08:43] LABS: Basophils Absolute Auto 0.1 X10*3/uL (0.0-0.2); Basophils Percent Auto 1.2 % (0-2); Eosinophils Absolute Auto 0.1 X10*3/uL (0.0-0.4); Eosinophils Percent Auto 2.2 % (0-4); Hematocrit 44.2 % (42.0-52.0); Imm Gran Abs Auto 0.01 X10*3/uL (0.00-0.03); Imm Gran Pct Auto 0.2 % (0.0-0.4); Lymphocytes Absolute Auto 1.3 X10*3/uL (1.2-4.9); Lymphocytes Percent Auto 31.6 % (20-40); Mean Corpuscular HGB Conc 33.9 g/dl (31.0-36.0); Mean Corpuscular Hemoglobin 30.2 pg (27.0-33.0); Mean Corpuscular Volume 88.9 fL (80.0-98.0); Mean Platelet Volume 10.7 fL (9.4-12.4); Monocytes Absolute Auto 0.3 X10*3/uL (0.1-1.2); Monocytes Percent Auto 6.9 % (2-11); Neutrophils Absolute Auto 2.4 x10*3/uL (2.0-8.3); Neutrophils Percent Auto 57.9 % (45-73); Platelet Count 118 X10*3/uL (160-400); Red Blood Count 4.97 X10*6/uL (4.60-5.80); Red Cell Distribution Width 12.7 % (11.0-16.0); White Blood Count 4.1 X10*3/uL (4.8-10.8)
[2022-09-01 08:46] LABS: Estimated Average Glucose 108 mg/dL; Hemoglobin A1c % 5.4 %
[2022-09-01 09:14] LABS: Alanine Aminotransferase 75 U/L (0-40); Albumin Level 4.4 g/dL (3.5-5.0); Alkaline Phosphatase 56 U/L (39-117); Anion Gap 14 (12-20); Aspartate Amino Transferase 40 U/L (5-37); Blood Urea Nitrogen 12 mg/dL (9-16); Calcium 9.1 mg/dL (8.4-10.2); Carbon Dioxide 27 mmol/L (22-29); Chloride 104 mmol/L (96-108); Cholesterol 180 mg/dL; Estimated Glomerular Filt Rate > 60; Glucose Fasting 101 mg/dL (60-99); HDL Cholesterol 42 mg/dL; LDL Cholesterol Calculated 121 mg/dl; Potassium 3.6 mmol/L (3.3-5.1); Sodium 141 mmol/L (135-145); Total Protein 7.2 g/dL (6.5-8.0); Triglycerides 88 mg/dL
[2022-09-01 09:31] LABS: Appearance Urine Clear; Color Urine Yellow; Glucose Urine UA Negative (Negative); Leukocyte Esterase Urine Negative (Negative); Nitrite Urine Negative (Negative); PH 7.5 (5.0-9.0); Specific Gravity - Urine 1.015 (1.005-1.025); Urine Blood Negative (Negative); Urine Ketones Negative (Negative); Urine Protein Negative (Neg-Trace)
[2022-09-01 09:32] LABS: Prostate Specific Antigen 1.38 ng/mL (<0.05-4.0); TSH reflex Free T4 0.95 uIU/mL (0.32-4.0); Vitamin D 25-OH Total 17.8 ng/mL (>30)
== END 2022-09-01 08:06 | disposition home or self-care (01) ==
LOC: HO.LAB 08:05
PROVIDERS: PCP Internal Medicine; Visit Provider Internal Medicine
DX: Z00.00 Encounter for general adult medical examination without abnormal findings (principal); E78.00 Pure hypercholesterolemia, unspecified; R73.01 Impaired fasting glucose; N40.0 Benign prostatic hyperplasia without lower urinary tract symptoms; R30.0 Dysuria; E55.9 Vitamin D deficiency, unspecified; Z12.5 Encounter for screening for malignant neoplasm of prostate
CPT/HCPCS: 36415; 80053; 80061; 81003; 82306; 83036; 84153; 84443; 85025

== ENCOUNTER 2023-01-20 09:53 | Outpatient (REF) | payer MEDICARE, MEDICAID, SELFPAY ==
--- NOTE | ~2023-01-20 | US_ITS ---
EXAMINATION: US ABDOMEN COMPLETE CLINICAL INFORMATION: Other specified abnormal findings of blood chemistry. COMPARISON: X-ray [facility] 05/30/2021. TECHNIQUE: Real-time imaging of the abdominal viscera. FINDINGS: PANCREAS: The pancreas appears unremarkable, without masses or ductal dilatation, with the exception of the tail which is obscured by bowel gas. ABDOMINAL AORTA: Calcified atherosclerotic change is present in the aorta without significant aneurysm seen. INFERIOR VENA CAVA: Visualized portions are normal. LIVER: The liver is normal in size. The liver contour is normal. There is diffuse increased liver parenchymal echogenicity, consistent with hepatic steatosis. No focal hepatic lesion. There is no intrahepatic biliary duct dilatation seen. GALLBLADDER: Multiple gallbladder wall polyps are seen, the largest measuring 3 mm. The gallbladder is physiologically distended without evidence of stones, sludge, wall thickening or pericholecystic fluid. COMMON BILE DUCT: Normal in caliber measuring 0.5 cm in diameter. RIGHT KIDNEY: Normal. No hydronephrosis. No renal calculi or focal parenchymal lesions. The kidney measures 10.5 cm in maximum dimension. LEFT KIDNEY: A benign 1.9 cm Bosniak class II renal parapelvic cyst is noted which requires no additional imaging or follow up. This has a single area of shadowing calcification in its wall. No worrisome solid renal masses are seen. No hydronephrosis or renal calculi. The kidney measures 11.3 cm in maximum dimension. SPLEEN: Normal. The spleen measures 8.2 cm in maximum dimension. FREE FLUID: None. US/US abdomen complete IMPRESSION: 1. Hepatic steatosis. 2. Gallbladder polyps. 3. Benign Bosniak class II left renal cyst needs no further imaging or follow up.
== END 2023-01-20 09:54 | disposition home or self-care (01) ==
LOC: HO.US 09:53
PROVIDERS: PCP Internal Medicine; Visit Provider Internal Medicine
DX: R79.89 Other specified abnormal findings of blood chemistry (principal)
CPT/HCPCS: 76700

== ENCOUNTER 2023-08-20 08:54 | Outpatient (AMB) | payer MEDICARE, SELFPAY ==
--- NOTE | 2023-08-20 08:57 | MHC.PC.OV ---
Vital Signs 08/20/23 08:58 Height 5 ft 7 in Weight 161 lb 2 oz BMI 25.2 BP 124/70 Blood Pressure Location Lt brachial Position Sitting Pulse 61 Pulse Source Pulse Oximeter Pulse Oximetry (%) 97 Oxygen Delivery Method Room Air Intake Visit Reasons: Annual Exam Intake Note: Patient is here today for a physical. Transportation Maintenance Specialist Required: No Statistical Programmer Analyst: Not Required per policy Accompanied by: Self / Same As Patient Allergies No Known Allergies [No Known Allergies*] Allergy (Verified 08/20/23 09:13) Medication List - Last Reconciled 08/20/23 by John Gunderson MD cholecalciferol (vitamin D3) 25 mcg PO DAILY 90 days docusate sodium 100 mg PO BEDTIME Tobacco use date assessed: 08/20/23 Fall risk assessment: No Falls in past year Last assessed Fall Risk: 08/20/23 Dental Screening Dental Screen Date: 08/20/23 Did you have a dental visit in the last 12 months?: Yes Did you have a dental problem in the last 6 months where you did not have access to dental care?: No Was dental information given to patient?: Patient has dentist HPI Annual Exam HPI Details Patient comes in today for his annual physical examination States that he feels okay He denies any headaches or dizziness Denies any chest pains, no SOB No nausea/vomiting, no abdominal pain No change in bowel habits noted - still has occasional constipation but states that taking stool softeners on an as-needed basis will usually correct this Denies any acute urinary symptoms Had his colonoscopy done a couple of years ago in 07/2021 - (+) tubular adenoma and was recommended to undergo repeat colonoscopy in 3 years, which would be sometime at the end of the year (07/2024) Would also like to know if his labs done last year showed any concerning issues [facility] Medical History (Updated 08/20/23 @ 09:33 by John Gunderson MD) Overweight (BMI 25.0-29.9) Vitamin D deficiency Tubular adenoma Internal hemorrhoid Left foot pain Surgical History H/O left inguinal hernia repair H/O colonoscopy (~07/04/21) History of appendectomy Family History Father Diabetes HTN (hypertension) Mother No problems noted. Social History Housing: House Alcohol intake: never Patient Tobacco Use Status: Never used Tobacco e-Cigarette/Vaping Use: Never Used Second Hand Smoke Exposure: No service: No Current occupational status: retired Cognitive needs: No Hearing needs: No Vision needs: No Questionnaire PHQ-9 Over the last 2 weeks, how often have you been bothered by any of the following problems? 1. Little interest or pleasure in doing things: not at all 2. Feeling down, depressed, or hopeless: not at all 3. Trouble falling or staying asleep, or sleeping too much: not at all 4. Feeling tired or having little energy: not at all 5. Poor appetite or overeating: not at all 6. Feeling bad about yourself - or that you are a failure or have let yourself or your family down: not at all 7. Trouble concentrating on things, such as reading the newspaper or watching television: not at all 8. Moving or speaking so slowly that other people could have noticed. Or the opposite - being so fidgety or restless that you have been moving around a lot more than usual: not at all 9. Thoughts that you would be better off or of hurting yourself in some way: not at all Total score: 0 Depression Screening Interpretation: Negative Depression Screening Done: Yes 59201 - PHQ-9 Billing: Yes Source: Developed by Drs. Dewayne Gamez, Rafia Strauss, Mynor Arellano and colleagues, with an educational magali from [employer]. Thrive Questionnaire Date Thrive assessed: 08/20/23 I am a: Patient What is your living situation today?: I have a steady place to live Within the past 12 months, did the food you bought not last and you didn't have the money to get more?: Never true Within the past 12 months, did you worry whether your food would run out before you got money to buy more?: Never true Do you have trouble paying for medicines?: No Do you have trouble getting transportation to medical appointments?: No Do you have trouble paying your heating and electricity bill?: No Do you have trouble taking care of your child, family member or friend?: No Do you have trouble with day-to-day activities such as bathing, preparing meals, shopping, managing finances, etc.?: No Are you currently unemployed and looking for a job?: No Are you interested in more education?: No Currently or been in a relationship where the following occur: no concerns reported THRIVE Score: 0 AUDIT C Alcohol Use Questionnaire (AUDIT-C) 1. How often do you have a drink containing alcohol?: Never 3. How often do you have six or more drinks on one occasion?: Never Total Score: 0 Score Reviewed/Action Taken: Yes STEVO-7 AMB Questionnaire STEVO-7 Date STEVO - 7 assessed: 08/20/23 Feeling nervous, anxious, or on edge: 0 = Not at all Not being able to stop or control worryin = Not at all Worrying too much about different things: 0 = Not at all Trouble relaxin = Not at all Being so restless that it is hard to sit still: 0 = Not at all Becoming easily annoyed or irritable: 0 = Not at all Feeling afraid as if something awful might happen: 0 = Not at all Total STEVO-7 score (0-4 normal; 5-9 mild; 10-14 moderate; 15-21 severe): 0 Source: Developed by Drs. Dewayne Gamez, Rafia Strauss, Mynor Arellano and colleagues, with an educational magali from [employer]. Review of Systems Const Denies chills, Denies fatigue, Denies fever(s), Denies headache(s) and Denies malaise Eyes Denies blurry vision, Denies change in vision, Denies irritation and Denies itchy eyes ENT Denies dysphagia, Denies dizziness, Denies otalgia, Denies headache(s), Denies nasal congestion, Denies neck pain, Denies odynophagia and Denies sore throat Card Denies chest pain, Denies rapid heart rate, Denies irregular heart rhythm, Denies palpitations and Denies dyspnea Resp Denies chest congestion, Denies cough, Denies dyspnea and Denies wheezing GI Denies abdominal pain, Denies bloating, Denies change in bowel habits, Reports constipation (occasionally - relieved when taking OTC stool softeners), Denies dysphagia, Denies heartburn, Denies diarrhea, Denies nausea, Denies odynophagia and Denies vomiting Denies hematuria, Denies difficulty urinating, Denies dysuria, Denies testicular mass, Denies testicular pain, Denies urinary frequency, Denies urinary incontinence and Denies urinary urgency Musc Denies back pain, Denies arthralgias, Denies joint swelling, Denies muscle weakness and Denies neck pain Skin/Breast Denies change in pigmentation, Denies lesions, Denies rash and Denies unusual bruising Neuro Denies dizziness, Denies headache(s) and Denies paresthesias Endo Denies fatigue and Denies palpitations Aller/Immun Denies itchy eyes and Denies wheezing Physical exam (Primary Care) Vital Signs: Last Vital Signs Pulse 61 08/20/23 08:58 BP 124/70 08/20/23 08:58 Pulse Ox 97 08/20/23 08:58 Oxygen Delivery Method Room Air 08/20/23 08:58 BMI result Body Mass Index 25.2 Tobacco/Smoking Status: Tobacco use Status Tobacco use date assessed 08/20/23 08/20/23 09:03 Patient Tobacco Use Status Never used Tobacco 08/20/23 09:03 e-Cigarette/Vaping Use Never Used 08/20/23 09:03 PHQ-9: PHQ-9 Score PHQ-9: Total score 0 08/20/23 09:03 Depression Screening Interpretation: Negative Thrive Assessment: Date of Thrive Assessment Date Thrive assessed 08/20/23 08/20/23 09:03 Currently or been in a relationship where the following occur: no concerns reported Const General: no acute distress, alert and awake Orientation/consciousness: patient oriented x3 [facility] Head: Yes normocephalic and Yes atraumatic Ears: external ears normal, TM's normal bilaterally and EAC's normal General nose exam: No nasal discharge present Face and sinus: Yes normal facial exam and Yes sinuses nontender Teeth and gingiva: dentition normal Throat: Yes posterior oropharynx normal and Yes tonsils normal (no TP congestion) Eyes Eyelids: Yes eyelids normal Conjunctivae: conjunctivae normal Pupils: Equal, round and reactive pupils present EOM: EOMs intact bilaterally Neck Neck: Yes no lymphadenopathy and Yes supple Thyroid: Thyroid normal Resp Auscultation: clear to auscultation bilaterally, no rales and no wheezes Cardio Rate: regular rate Rhythm: regular rhythm Heart sounds: no murmurs GI Palpation (GI): Soft to palpation, nontender and No hepatosplenomegaly present Auscultation: normal bowel sounds General: Yes no CVA tenderness Back/Spine/Pelvis Back: no CVA tenderness Thoracic/Lumbar Spine: thoracic and lumbar spine normal to inspection Skin Lesions: no lesions Rashes: no rashes Neuro General: patient oriented x3, moves all extremities, no focal motor deficits and CN's II-XI intact bilaterally Cranial nerves: Yes CN's II-XII intact bilaterally and Yes Equal, round and reactive pupils present Extrem General: Yes no clubbing, cyanosis or edema Assessment and Plan Assessment & Plan (1) Annual physical exam: Code(s): Z00.00 - Encounter for general adult medical examination without abnormal findings Plan: Results of his labs done last year reviewed and discussed with patient - advised that his cholesterol levels have increased slightly from previous back then His LFTs were also slightly elevated a year ago - advised that this is most likely due to his weight and should resolve with weight loss Will recheck his labs ROMMEL for follow up Had his colonoscopy last done in 07/2021 and he will be due for repeat in 3 years ~ 07/2024 (2) Constipation: Code(s): K59.00 - Constipation, unspecified Qualifiers: Constipation type: unspecified constipation type Qualified Code(s): K59.00 - Constipation, unspecified Plan: Reinforced increased oral fluids and dietary fiber Continue Docusate 100 mg Q PM PRN (3) Impaired fasting glucose: Code(s): R73.01 - Impaired fasting glucose Plan: Cautioned that his blood sugar readings have been slightly higher than recommended on his recent labs; HgbA1c was normal at 5.4% Reinforced low calorie diet (4) Vitamin D deficiency: Code(s): E55.9 - Vitamin D deficiency, unspecified Plan: Advised that his Vitamin D level was still low on his labs done last year Continue Vitamin D3 1000 units QD and will recheck his vitamin D level again for follow up (5) Elevated LFTs: Code(s): R79.89 - Other specified abnormal findings of blood chemistry Plan: Advised again that his slightly elevated LFTs on his labs last year were most likely related to his weight (patient does NOT drink alcohol) and should resolve with weight loss Will recheck his LFTs as well for follow up (6) Overweight (BMI 25.0-29.9): Code(s): E66.3 - Overweight Plan: Reinforced diet/exercise as tolerated/lose weight - he has gained some weight since his last visit a year ago Plan To return in 1 year for his next annual physical examination Orders: Orders Complete Blood Count Auto Diff Today K59.00 - Constipation, unspecified, Z00.00 - Encounter for general adult medical examination without abnormal findings Lipid Panel Today E78.00 - Pure hypercholesterolemia, unspecified, Z00.00 - Encounter for general adult medical examination without abnormal findings UA CC w/rflx Micro + Cult Today R30.0 - Dysuria, Z00.00 - Encounter for general adult medical examination without abnormal findings Vitamin D 25-OH Total Today E55.9 - Vitamin D deficiency, unspecified, Z00.00 - Encounter for general adult medical examination without abnormal findings Prostate Specific Antigen Scr Today Z00.00 - Encounter for general adult medical examination without abnormal findings Comprehensive [place]. Panel Fast Today R79.89 - Other specified abnormal findings of blood chemistry, Z00.00 - Encounter for general adult medical examination without abnormal findings TSH reflex Free T4 Today E66.3 - Overweight, E78.00 - Pure hypercholesterolemia, unspecified, Z00.00 - Encounter for general adult medical examination without abnormal findings Hemoglobin A1c Today R73.01 - Impaired fasting glucose, Z00.00 - Encounter for general adult medical examination without abnormal findings Coding Level of Care Code Est Pt Prev Care >65y(17796) Diagnoses Annual physical exam Z00.00 Constipation K59.00 Constipation type: unspecified constipation type Impaired fasting glucose R73.01 Vitamin D deficiency E55.9 Elevated LFTs R79.89 Overweight (BMI 25.0-29.9) E66.3
[2023-08-20 08:58] VITALS: BP 124/70; PULSE 61; O2SAT 97; BMI 25.2
== END 2023-08-20 09:32 | disposition home or self-care (01) ==
PROVIDERS: PCP Internal Medicine; Visit Provider Internal Medicine
DX: Z00.00 Encounter for general adult medical examination without abnormal findings (principal); K59.00 Constipation, unspecified; R73.01 Impaired fasting glucose; E55.9 Vitamin D deficiency, unspecified; R79.89 Other specified abnormal findings of blood chemistry; E66.3 Overweight
CPT/HCPCS: 99397

== ENCOUNTER 2023-08-21 08:13 | Outpatient (REF) | payer MEDICARE, SELFPAY ==
[2023-08-21 08:26] LABS: MANUAL DIFF FLAG NO
[2023-08-21 09:05] LABS: Hemoglobin 15.2 g/dl (14.0-18.0); Imm Gran Abs Auto 0.01 X10*3/uL (0.00-0.03); Imm Gran Pct Auto 0.2 % (0.0-0.4); PLT CLUMP 1; SCAN SMEAR FLAG 1
[2023-08-21 09:07] LABS: Basophils Percent Auto 0.7 % (0-2); Eosinophils Absolute Auto 0.1 X10*3/uL (0.0-0.4); Eosinophils Percent Auto 2.7 % (0-4); Hematocrit 44.7 % (42.0-52.0); Lymphocytes Absolute Auto 1.4 X10*3/uL (1.2-4.9); Lymphocytes Percent Auto 31.9 % (20-40); Mean Corpuscular Hemoglobin 30.3 pg (27.0-33.0); Mean Platelet Volume 10.6 fL (9.4-12.4); Monocytes Absolute Auto 0.3 X10*3/uL (0.1-1.2); Monocytes Percent Auto 6.8 % (2-11); Neutrophils Absolute Auto 2.6 x10*3/uL (2.0-8.3); Neutrophils Percent Auto 57.7 % (45-73); Red Blood Count 5.02 X10*6/uL (4.60-5.80); White Blood Count 4.4 X10*3/uL (4.8-10.8)
[2023-08-21 09:08] LABS: Platelet Count 130 X10*3/uL (160-400)
[2023-08-21 09:12] LABS: Estimated Average Glucose 108 mg/dL; Hemoglobin A1c % 5.4 % (<6.0)
[2023-08-21 09:20] LABS: Appearance Urine Clear; Color Urine Yellow; Glucose Urine UA Negative (Negative); Leukocyte Esterase Urine Negative (Negative); Nitrite Urine Negative (Negative); Specific Gravity - Urine 1.015 (1.005-1.025); Urine Blood Negative (Negative); Urine Ketones Negative (Negative); Urine Protein Negative (Neg-Trace)
[2023-08-21 09:45] LABS: Alanine Aminotransferase 64 U/L (0-40); Albumin Level 4.5 g/dL (3.5-5.0); Alkaline Phosphatase 48 U/L (39-117); Anion Gap 12 (12-20); Aspartate Amino Transferase 37 U/L (5-37); Bilirubin Total 0.9 mg/dL (0.0-1.0); Blood Urea Nitrogen 12 mg/dL (9-16); Calcium 9.3 mg/dL (8.4-10.2); Carbon Dioxide 28 mmol/L (22-29); Chloride 104 mmol/L (96-108); Cholesterol 190 mg/dL (<200); Estimated Glomerular Filt Rate > 60; Glucose Fasting 100 mg/dL (60-99); HDL Cholesterol 47 mg/dL (>40); LDL Cholesterol Calculated 126 mg/dL (<100); Potassium 3.9 mmol/L (3.3-5.1); Sodium 140 mmol/L (135-145); Total Protein 7.7 g/dL (6.5-8.0); Triglycerides 85 mg/dL (<150)
[2023-08-21 10:03] LABS: TSH reflex Free T4 0.71 uIU/mL (0.32-4.0); Vitamin D 25-OH Total 26.1 ng/mL (>30)
[2023-08-21 10:05] LABS: Prostate Specific Antigen Scr 1.35 ng/mL (<0.05-4.0)
== END 2023-08-21 08:14 | disposition home or self-care (01) ==
LOC: HO.LAB 08:13
PROVIDERS: PCP Internal Medicine; Visit Provider Internal Medicine
DX: Z00.00 Encounter for general adult medical examination without abnormal findings (principal); Z12.5 Encounter for screening for malignant neoplasm of prostate; K59.00 Constipation, unspecified; E78.00 Pure hypercholesterolemia, unspecified; E55.9 Vitamin D deficiency, unspecified; R79.89 Other specified abnormal findings of blood chemistry; E66.3 Overweight; R73.01 Impaired fasting glucose; R30.0 Dysuria
CPT/HCPCS: 36415; 80053; 80061; 81003; 82306; 83036; 84153; 84443; 85025

== ENCOUNTER 2024-07-18 11:50 | Outpatient (REF) | payer MEDICARE, SELFPAY ==
[2024-07-18 12:56] LABS: Appearance Urine Clear; Color Urine Yellow; Glucose Urine UA Negative (Negative); Leukocyte Esterase Urine Negative (Negative); Nitrite Urine Negative (Negative); PH 7.5 (5.0-9.0); Specific Gravity - Urine 1.015 (1.005-1.025); Urine Blood Negative (Negative); Urine Ketones Negative (Negative); Urine Protein Negative (Neg-Trace)
== END 2024-07-18 11:51 | disposition home or self-care (01) ==
LOC: HO.LAB 11:50
PROVIDERS: PCP Internal Medicine; Visit Provider Internal Medicine
DX: R39.9 Unspecified symptoms and signs involving the genitourinary system (principal)
CPT/HCPCS: 81003

== ENCOUNTER 2024-08-23 08:57 | Outpatient (AMB) | payer MEDICARE, SELFPAY ==
[2024-08-23 09:17] VITALS: BP 122/84; PULSE 63; O2SAT 96; BMI 25.1
--- NOTE | 2024-08-23 09:17 | A.OFFPC_ITS ---
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 Accompanied by: Self / Same As Patient Allergies No Known Allergies [No Known Allergies*] Allergy (Verified 08/23/24 09:47) Medication List - Last Reconciled 08/23/24 by John Gunderson MD cholecalciferol (vitamin D3) 25 mcg PO DAILY 90 days docusate sodium 100 mg PO BEDTIME Tobacco use date assessed: 08/23/24 Fall risk assessment: No Falls in past year Last assessed Fall Risk: 08/23/24 Dental Screening Dental Screen Date: 08/23/24 Did you have a dental visit in the last 12 months?: Yes Did you have a dental problem in the last 6 months where you did not have access to dental care?: No Was dental information given to patient?: Patient has dentist HPI Annual Exam HPI Details Patient comes in today for his annual physical examination States that he feels okay Denies any headaches or dizziness Denies any chest pains, no SOB No nausea/vomiting, no abdominal pain No change in bowel habits noted States that he has been experiencing increased urinary frequency and nocturia for a while now; denies any dysuria He is also now due for repeat colonoscopy and was advised by GI when he reached out to them that he will need a new referral from his PCP [facility] Medical History Overweight (BMI 25.0-29.9) Vitamin D deficiency Tubular adenoma Internal hemorrhoid Left foot pain Surgical History H/O left inguinal hernia repair H/O colonoscopy (~07/04/21) History of appendectomy Family History Father Diabetes HTN (hypertension) Mother No problems noted. Social History Housing: House Alcohol intake: never Patient Tobacco Use Status: Never used Tobacco e-Cigarette/Vaping Use: Never Used Second Hand Smoke Exposure: No service: No Current occupational status: retired Cognitive needs: No Hearing needs: No Vision needs: No Questionnaire PHQ-9 Over the last 2 weeks, how often have you been bothered by any of the following problems? 1. Little interest or pleasure in doing things: not at all 2. Feeling down, depressed, or hopeless: not at all 3. Trouble falling or staying asleep, or sleeping too much: not at all 4. Feeling tired or having little energy: not at all 5. Poor appetite or overeating: not at all 6. Feeling bad about yourself - or that you are a failure or have let yourself or your family down: not at all 7. Trouble concentrating on things, such as reading the newspaper or watching television: not at all 8. Moving or speaking so slowly that other people could have noticed. Or the opposite - being so fidgety or restless that you have been moving around a lot more than usual: not at all 9. Thoughts that you would be better off or of hurting yourself in some way: not at all Total score: 0 Depression Screening Interpretation: Negative Depression Screening Done: Yes 49996 - PHQ-9 Billing: Yes Source: Developed by Drs. Dewayne Gamez, Rafia Strauss, Mynor Arellano and colleagues, with an educational magali from [employer]. Thrive Questionnaire Date Thrive assessed: 08/23/24 I am a: Patient What is your living situation today?: I have a steady place to live Within the past 12 months, did the food you bought not last and you didn't have the money to get more?: I choose not to answer this question Within the past 12 months, did you worry whether your food would run out before you got money to buy more?: Never true Do you have trouble paying for medicines?: No Do you have trouble getting transportation to medical appointments?: No Do you have trouble paying your heating and electricity bill?: No Do you have trouble taking care of your child, family member or friend?: No Do you have trouble with day-to-day activities such as bathing, preparing meals, shopping, managing finances, etc.?: No Are you currently unemployed and looking for a job?: No Are you interested in more education?: I choose not to answer this question Please select the resources that you would like help with: None Currently or been in a relationship where the following occur: I choose not to answer THRIVE Score: 0 AUDIT C Alcohol Use Questionnaire (AUDIT-C) 1. How often do you have a drink containing alcohol?: Never 3. How often do you have six or more drinks on one occasion?: Never Total Score: 0 Score Reviewed/Action Taken: Yes STEVO-7 AMB Questionnaire STEVO-7 Date STEVO - 7 assessed: 08/20/23 Feeling nervous, anxious, or on edge: 0 = Not at all Not being able to stop or control worryin = Not at all Worrying too much about different things: 0 = Not at all Trouble relaxin = Not at all Being so restless that it is hard to sit still: 0 = Not at all Becoming easily annoyed or irritable: 0 = Not at all Feeling afraid as if something awful might happen: 0 = Not at all Total STEVO-7 score (0-4 normal; 5-9 mild; 10-14 moderate; 15-21 severe): 0 Source: Developed by Drs. Dewayne Gamez, Rafia Strauss, Mynor Arellano and colleagues, with an educational magali from [employer]. Review of Systems Const Denies chills, Denies fatigue, Denies fever(s), Denies headache(s) and Denies malaise Eyes Denies blurry vision, Denies change in vision, Denies irritation and Denies itchy eyes ENT Denies dysphagia, Denies dizziness, Denies otalgia, Denies headache(s), Denies nasal congestion, Denies neck pain, Denies odynophagia and Denies sore throat Card Denies chest pain, Denies rapid heart rate, Denies irregular heart rhythm, Denies palpitations and Denies dyspnea Resp Denies chest congestion, Denies cough, Denies dyspnea and Denies wheezing GI Denies abdominal pain, Denies bloating, Denies change in bowel habits, Reports constipation (occasionally - relieved when taking OTC stool softeners), Denies dysphagia, Denies heartburn, Denies diarrhea, Denies nausea, Denies odynophagia and Denies vomiting Denies hematuria, Denies difficulty urinating, Denies dysuria, Reports nocturia, Denies testicular mass, Denies testicular pain, Reports urinary frequency, Denies urinary incontinence and Denies urinary urgency Musc Denies back pain, Denies arthralgias, Denies joint swelling, Denies muscle weakness and Denies neck pain Skin/Breast Denies change in pigmentation, Denies lesions, Denies rash and Denies unusual bruising Neuro Denies dizziness, Denies headache(s) and Denies paresthesias Endo Denies fatigue and Denies palpitations Aller/Immun Denies itchy eyes and Denies wheezing Physical exam (Primary Care) Vital Signs: Last Vital Signs Pulse 63 08/23/24 09:17 BP 122/84 08/23/24 09:17 Pulse Ox 96 08/23/24 09:17 Oxygen Delivery Method Room Air 08/23/24 09:17 BMI result Body Mass Index 25.1 Tobacco/Smoking Status: Tobacco use Status Tobacco use date assessed 08/23/24 08/23/24 09:22 Patient Tobacco Use Status Never used Tobacco 08/23/24 09:22 e-Cigarette/Vaping Use Never Used 08/23/24 09:22 PHQ-9: PHQ-9 Score PHQ-9: Total score 0 08/23/24 09:22 Depression Screening Interpretation: Negative Thrive Assessment: Date of Thrive Assessment Date Thrive assessed 08/23/24 08/23/24 09:22 Currently or been in a relationship where the following occur: I choose not to answer Const General: no acute distress, alert and awake Orientation/consciousness: patient oriented x3 HENMT Head: Yes normocephalic and Yes atraumatic Ears: external ears normal, TM's normal bilaterally and EAC's normal General nose exam: No nasal discharge present Face and sinus: Yes normal facial exam and Yes sinuses nontender Teeth and gingiva: dentition normal Throat: Yes posterior oropharynx normal and Yes tonsils normal (no TP congestion) Eyes Eyelids: Yes eyelids normal Conjunctivae: conjunctivae normal Pupils: Equal, round and reactive pupils present EOM: EOMs intact bilaterally Neck Neck: Yes supple and No lymphadenopathy Thyroid: Thyroid normal Resp Auscultation: clear to auscultation bilaterally, no rales and no wheezes Cardio Rate: regular rate Rhythm: regular rhythm Heart sounds: no murmurs GI Palpation (GI): Soft to palpation, nontender and No hepatosplenomegaly present Auscultation: normal bowel sounds General: Yes no CVA tenderness Back/Spine/Pelvis Back: no CVA tenderness Thoracic/Lumbar Spine: thoracic and lumbar spine normal to inspection Skin Lesions: no lesions Rashes: no rashes Neuro General: patient oriented x3, moves all extremities, no focal motor deficits and CN's II-XI intact bilaterally Cranial nerves: Yes CN's II-XII intact bilaterally and Yes Equal, round and reactive pupils present Extrem General: Yes no clubbing, cyanosis or edema Coding Level of Care Code Est Pt Prev Care >65y(27684) Diagnoses Annual physical exam Z00.00 Urinary frequency R35.0 Constipation K59.00 Constipation type: unspecified constipation type Impaired fasting glucose R73.01 Vitamin D deficiency E55.9 Elevated LFTs R79.89 Overweight (BMI 25.0-29.9) E66.3 Tubular adenoma D36.9 Additional Codes PHQ-9 - 08674 - PHQ-9 Billing: Yes ([id number]) Assessment & Plan Assessment & Plan (1) Annual physical exam: Code(s): Z00.00 - Encounter for general adult medical examination without abnormal findings Category: Medical Plan: Check labs He is due for repeat colonoscopy and was reportedly advised that he will need a new referral from his PCP (2) Urinary frequency: Code(s): R35.0 - Frequency of micturition Category: Medical Plan: Discussed with patient that his symptoms are most likely due to BPH Will check his serum PSA for further evaluation Will start him for now on Tamsulosin 0.4 mg Q HS to help with his symptoms Will refer him as well to urology for further evaluation and management (3) Constipation: Code(s): K59.00 - Constipation, unspecified Category: Medical Qualifiers: Constipation type: unspecified constipation type Qualified Code(s): K59.00 - Constipation, unspecified Plan: Reinforced again increased oral fluids and dietary fiber Continue Docusate 100 mg Q PM PRN (4) Impaired fasting glucose: Code(s): R73.01 - Impaired fasting glucose Category: Medical Plan: Reinforced low calorie/low carb diet Have cautioned patient previously that his blood sugar readings have been slightly higher than recommended on his recent labs; HgbA1c was normal at 5.4% when last checked Will have him recheck his FBS and HgbA1c for follow up (5) Vitamin D deficiency: Code(s): E55.9 - Vitamin D deficiency, unspecified Category: Medical Plan: Continue Vitamin D3 1000 units QD Will recheck his vitamin D level again for follow up (6) Elevated LFTs: Code(s): R79.89 - Other specified abnormal findings of blood chemistry Category: Medical Plan: His serum ALT was still elevated on his labs done last year He has been advised that this is most likely related to his weight (patient does NOT drink alcohol) and should improve with weight loss Will recheck his LFTs for follow up (7) Overweight (BMI 25.0-29.9): Code(s): E66.3 - Overweight Category: Medical Plan: Reinforced diet/exercise as tolerated/lose weight (8) Tubular adenoma: Code(s): D36.9 - Benign neoplasm, unspecified site Category: Medical Plan: He last had his colonoscopy done by Dr. Dahl in 07/2021 and is now due for repeat colonoscopy (3 year follow up) Will refer him back to GI for repeat colonoscopy Plan Follow up in 6 months Orders: Orders UA CC w/rflx Micro + Cult Today R30.0 - Dysuria, Z00.00 - Encounter for general adult medical examination without abnormal findings Prostate Specific Antigen Today N40.0 - Benign prostatic hyperplasia without lower urinary tract symptoms, Z00.00 - Encounter for general adult medical examination without abnormal findings Vitamin D 25-OH Total Today E55.9 - Vitamin D deficiency, unspecified, Z00.00 - Encounter for general adult medical examination without abnormal findings Complete Blood Count Auto Diff Today D64.9 - Anemia, unspecified, Z00.00 - Encounter for general adult medical examination without abnormal findings Comprehensive Notus. Panel Fast Today E78.00 - Pure hypercholesterolemia, unspecified, Z00.00 - Encounter for general adult medical examination without abnormal findings Lipid Panel Today E78.00 - Pure hypercholesterolemia, unspecified, Z00.00 - Encounter for general adult medical examination without abnormal findings TSH reflex Free T4 Today E78.00 - Pure hypercholesterolemia, unspecified, Z00.00 - Encounter for general adult medical examination without abnormal findings Hemoglobin A1c Today R73.01 - Impaired fasting glucose Referrals Urology Referral R35.0 - Frequency of micturition Gastroenterology Referral Z12.11 - Encounter for screening for malignant neoplasm of colon Medications: New tamsulosin 0.4 mg PO BEDTIME 90 days 90 caps 1RF N40.1 - Benign prostatic hyperplasia with lower urinary tract symptoms, R35.1 - Nocturia
== END 2024-08-23 10:00 | disposition home or self-care (01) ==
PROVIDERS: PCP Internal Medicine; Visit Provider Internal Medicine
DX: Z00.00 Encounter for general adult medical examination without abnormal findings (principal); R35.0 Frequency of micturition; K59.00 Constipation, unspecified; R73.01 Impaired fasting glucose; E55.9 Vitamin D deficiency, unspecified; R79.89 Other specified abnormal findings of blood chemistry; E66.3 Overweight; D36.9 Benign neoplasm, unspecified site

== ENCOUNTER → 2024-08-23 08:57 | Outpatient (BNVA) | payer MEDICARE, SELFPAY | PROVIDERS: PCP Internal Medicine; Visit Provider Internal Medicine | DX: Z00.00 Encounter for general adult medical examination without abnormal findings (principal); R35.0 Frequency of micturition; K59.00 Constipation, unspecified; R73.01 Impaired fasting glucose; E55.9 Vitamin D deficiency, unspecified; R79.89 Other specified abnormal findings of blood chemistry; E66.3 Overweight; D36.9 Benign neoplasm, unspecified site | CPT/HCPCS: 96127; 99397 ==

== ENCOUNTER 2024-08-25 08:21 | Outpatient (REF) | payer MEDICARE, SELFPAY ==
[2024-08-25 08:41] LABS: MANUAL DIFF FLAG NO
[2024-08-25 09:43] LABS: Basophils Percent Auto 0.6 % (0-2); Eosinophils Absolute Auto 0.1 X10*3/uL (0.0-0.4); Hematocrit 43.9 % (42.0-52.0); Hemoglobin 14.8 g/dl (14.0-18.0); Imm Gran Abs Auto 0.02 X10*3/uL (0.00-0.03); Imm Gran Pct Auto 0.4 % (0.0-0.4); Lymphocytes Absolute Auto 1.4 X10*3/uL (1.2-4.9); Lymphocytes Percent Auto 29.1 % (20-40); Mean Corpuscular HGB Conc 33.7 g/dl (31.0-36.0); Mean Corpuscular Hemoglobin 30.4 pg (27.0-33.0); Mean Corpuscular Volume 90.1 fL (80.0-98.0); Mean Platelet Volume 10.4 fL (9.4-12.4); Monocytes Absolute Auto 0.3 X10*3/uL (0.1-1.2); Monocytes Percent Auto 6.6 % (2-11); Neutrophils Absolute Auto 2.8 x10*3/uL (2.0-8.3); Neutrophils Percent Auto 60.3 % (45-73); Platelet Count 154 X10*3/uL (160-400); Red Blood Count 4.87 X10*6/uL (4.60-5.80); Red Cell Distribution Width 12.5 % (11.0-16.0); White Blood Count 4.7 X10*3/uL (4.8-10.8)
[2024-08-25 09:52] LABS: Appearance Urine Clear; Color Urine Yellow; Glucose Urine UA Negative (Negative); Leukocyte Esterase Urine Negative (Negative); Nitrite Urine Negative (Negative); Specific Gravity - Urine 1.015 (1.005-1.025); Urine Blood Negative (Negative); Urine Ketones Negative (Negative); Urine Protein Negative (Neg-Trace)
[2024-08-25 10:06] LABS: Estimated Average Glucose 114 mg/dL; Hemoglobin A1c % 5.6 % (<6.0); Total Hemoglobin (HGBA1C) 3864.8567 umol/L
[2024-08-25 10:58] LABS: Prostate Specific Antigen 2.18 ng/mL (<0.05-4.0)
[2024-08-25 12:50] LABS: Alanine Aminotransferase 76 U/L (0-40); Albumin Level 4.3 g/dL (3.5-5.0); Anion Gap 10 (12-20); Aspartate Amino Transferase 45 U/L (5-37); Bilirubin Total 0.7 mg/dL (0.0-1.0); Blood Urea Nitrogen 14 mg/dL (9-16); Calcium 9.1 mg/dL (8.4-10.2); Carbon Dioxide 29 mmol/L (22-29); Chloride 104 mmol/L (96-108); Cholesterol 165 mg/dL (<200); Estimated Glomerular Filt Rate > 60; Glucose Fasting 92 mg/dL (60-99); HDL Cholesterol 37 mg/dL (>40); LDL Cholesterol Calculated 112 mg/dL (<100); Sodium 139 mmol/L (135-145); Total Protein 7.9 g/dL (6.5-8.0); Triglycerides 83 mg/dL (<150)
[2024-08-25 13:20] LABS: TSH reflex Free T4 0.84 uIU/mL (0.32-4.0); Vitamin D 25-OH Total 31.8 ng/mL (>30)
[2024-08-25 14:19] LABS: Alkaline Phosphatase 51 U/L (39-117)
== END 2024-08-25 08:22 | disposition home or self-care (01) ==
LOC: HO.LAB 08:21
PROVIDERS: PCP Internal Medicine; Visit Provider Internal Medicine
DX: Z00.00 Encounter for general adult medical examination without abnormal findings (principal); R30.0 Dysuria; N40.0 Benign prostatic hyperplasia without lower urinary tract symptoms; E78.00 Pure hypercholesterolemia, unspecified; E55.9 Vitamin D deficiency, unspecified; D64.9 Anemia, unspecified; R73.01 Impaired fasting glucose; Z12.5 Encounter for screening for malignant neoplasm of prostate
CPT/HCPCS: 36415; 80053; 80061; 81003; 82306; 83036; 84153; 84443; 85025

== ENCOUNTER 2024-11-21 10:42 | Outpatient (AMB) | payer MEDICARE, SELFPAY ==
--- NOTE | 2024-11-21 11:29 | A.OFFVIS_ITS ---
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 Gunderson. He has a past medical history of vitamin-D deficiency, hemorrhoids, and overweight. He pres ents to the office today as a new patient for ongoing lower urinary tract symptoms he has been experiencing. In discussion with the patient today reports having followed up with his PCP in discussing episodes of nocturia varying from 3 times per night up to 5 times per night at which time he was started on Flomax and recommendations were made for urology referral for further assessment evaluation. Patient reports having trialed Flomax for 2-3 days however discusses his reluctancy to taking medications and therefore stopped taking the medication. He continues to experience episodes of nocturia. He denies urinary urgency, urinary frequency, incontinence, hematuria, dysuria, foul smelling urine, changes to urinary stream, flank pain, fever, and or chills. In office urinalysis results reviewed with the patient today. PVR 36ml's. When asked he does report a history of snoring and feeling fatigued upon wakening. We discussed obtaining home sleep study for further assessment evaluation and relation to sleep apnea with nocturia. We discussed obtaining retroperitoneal ultrasound for further assessment evaluation. We discussed the importance of limiting fluids 2-3 hours prior to bed to decreasing episodes of nocturia. We discussed further treatment options and risks and benefits of these treatment options. We discussed potential near future in office cystoscopy and or urodynamics for further assessment evaluation. All questions were answered. YAMILE offered however deferred. He otherwise offers no other issues or concerns at this time. In review of patient's chart it appears PSAs are as follows: 08/25 1.4, 08/26 2.2 Discussion Notes I discussed with the patient the likely causes of his nocturia. We covered management options, including medications for symptomatic relief, but the patient expressed hesitance to resume previously prescribed medications. He also reported inadequate trial duration with previous medication to assess efficacy. I recommended conducting an ultrasound to rule out anatomical abnormalities of the kidneys and bladder, and to reassess prostate size. Additionally, I explained that certain dietary habits, such as intake of caffeine, alcohol, and certain foods, could exacerbate bladder symptoms. We agreed on the importance of conducting the ultrasound to better inform treatment decisions. Plan I have recommended a renal and bladder ultrasound to evaluate for anatomical abnormalities contributing to the patient's nocturia. The patient is currently managing part of the condition by reducing fluid intake after 6:00 PM, which should continue. We have discussed the option of reintroducing pharmacotherapy if required, with a reminder about committing to a full treatment course. Beverage and food choices should be considered as potential triggers, and modifications can be applied for additional symptom relief. The results of the ultrasound will assist in determining the next steps in management, focusing on minimally invasive approaches as preferred by the patient. PENDING SALE TO [facility] Medical History Overweight (BMI 25.0-29.9) Vitamin D deficiency Tubular adenoma Internal hemorrhoid Left foot pain Surgical History H/O left inguinal hernia repair H/O colonoscopy (~07/04/21) History of appendectomy Family History Father Diabetes HTN (hypertension) Mother No problems noted. Social History Housing: House Alcohol intake: never Patient Tobacco Use Status: Never used Tobacco e-Cigarette/Vaping Use: Never Used Second Hand Smoke Exposure: No service: No Current occupational status: retired Cognitive needs: No Hearing needs: No Vision needs: No Review of Systems Const All systems reviewed & are unremarkable except as noted in HPI and below Physical Exam Const General: cooperative, healthy appearing, comfortable, no acute distress, well developed, alert and awake Orientation/consciousness: patient oriented x3 Limitations: no limitations HEENT Head: Yes normal to inspection, Yes normocephalic and Yes atraumatic Ears: hearing grossly normal bilaterally Eyes General: appearance normal, both eyes and all related structures Neck Neck: Yes normal visual inspection and Yes trachea midline Chest Chest palpation & inspection: normal inspection of the chest Resp Effort & Inspection: normal respiratory effort and able to speak in complete sentences Cardio Rate: regular rate GI Inspection: Yes normal to inspection General: Yes no CVA tenderness Back/Spine/Pelvis Back: no CVA tenderness Skin General skin exam: no rashes or lesions noted Neuro General: patient oriented x3 Extrem General: Yes normal to inspection Psych Appearance: grossly normal and well kempt Mental Status: mental status grossly normal Speech and movement: Normal speech and movement present and Clear speech present Affect: normal affect Attitude: cooperative Thought process: Normal thought process present Thought content: Normal thought content present Insight: Fair insight present (Psych) Judgement: Fair judgement present (Psych) Office Procedures Post Void Residual Post Residual Void Post Void Residual (PVR): 36 [id number] Void Residual by ultrasound Results AMB Urinalysis, Automated UA Leukoctes 0 Inna/uL Last Edit by [email or web address] on 11/21/24 14:30 UA Nitrite Last Edit by Canaraeva [email or web address] on 11/21/24 14:30 UA Urobilinogen 0.2 mg/dL Last Edit by [email or web address] on 11/21/24 14:30 UA Protein 0 mg/dL Last Edit by [email or web address] on 11/21/24 14:30 UA pH 8.5 Last Edit by [email or web address] on 11/21/24 14:30 UA Blood 0 Emerson/uL Last Edit by [email or web address] on 11/21/24 14:30 UA Specific [place] 1.005 Last Edit by [email or web address] on 11/21/24 14:30 UA Ketone Last Edit by [email or web address] on 11/21/24 14:30 UA Bilirubin 0 mg/dL Last Edit by [email or web address] on 11/21/24 14:30 UA Glucose 0 mg/dL Last Edit by [email or web address] on 11/21/24 14:30 Results Reviewed Results Reviewed: Laboratory Last Values Urine pH (Auto) 8.5 11/21/24 14:28 Specific [place] (Auto) 1.005 11/21/24 14:28 Urine Protein (Auto) 0 mg/dL 11/21/24 14:28 Glucose (UA)(Auto) 0 mg/dL 11/21/24 14:28 Urine Blood (Auto) 0 Emerson/uL 11/21/24 14:28 Urine Bilirubin (Auto) 0 mg/dL 11/21/24 14:28 Urine Urobilinogen (Auto) 0.2 mg/dL 11/21/24 14:28 Leukocyte Esterase (Auto) 0 Inna/uL 11/21/24 14:28 Assessment & Plan Assessment & Plan (1) Nocturia: Code(s): R35.1 - Nocturia Category: Medical Plan In office urinalysis results reviewed with the patient today; as noted above. PVR 36 mL We discussed at length potential causes of nocturia as well as further treatment options and risks and benefits of these treatment options. We discussed importance of limiting fluids 2-3 hours prior to bed to decrease episodes of nocturia. Will obtain retroperitoneal ultrasound for further assessment evaluation. Will obtain sleep study for further assessment evaluation. We discussed bladder triggers/irritants. Follow-up in 3 months with imaging and sleep study to be completed prior; or sooner with any issues, concerns, and or questions. Orders: Orders AMB Urinalysis Automated Today Z13.9 - Encounter for screening, unspecified AMB Post Void Residual by ultrasound Today R35.0 - Frequency of micturition Patient Instructions: The patient had an opportunity to ask questions regarding the treatment plan. All questions were answered. Physical exam, labs, and imaging were discussed and reviewed in detail. As well as risks, benefits, and discussion of treatment choices. No major barriers to understanding were identified. The patient expressed understanding and agreement with the above treatment plan. The patient was made aware they should contact our office by phone for worsening of their current condition, the appearance of new symptoms, or with any questions or concerns. Compliance is encouraged with any medications and follow up testing that is ordered. It is a privilege to be allowed the opportunity to participate in? your urological care.? Again, if you have any questions or concerns If you have any questions or concerns please do not hesitate to contact me. The office is [phone]. This note is constructed using voice recognition software. While every effort has been made to ensure accuracy director payment errors may have been included. Yours sincerely, MADYSON Obregon-TA Coding Level of Care Code New Pt Level 3 (77539) Diagnoses Nocturia R35.1 CPT Codes Post Residual Void - PVR CPT Code: 19005-Slwn Void Residual by ultrasound ([id number])
== END 2024-11-21 12:14 | disposition home or self-care (01) ==
LOC: HO.HUSH 10:43
PROVIDERS: PCP Internal Medicine; Visit Provider Nurse Practitioner Family
DX: R35.1 Nocturia (principal); Z13.9 Encounter for screening, unspecified
CPT/HCPCS: 99203

== ENCOUNTER → 2024-11-21 10:42 | Outpatient (BNVA) | payer MEDICARE, SELFPAY | PROVIDERS: PCP Internal Medicine; Visit Provider Nurse Practitioner Family | DX: R35.1 Nocturia (principal) | CPT/HCPCS: 51798; 81003; 99202 ==

== ENCOUNTER → 2025-01-05 10:42 | Outpatient (BNVA) | payer MEDICARE, SELFPAY | PROVIDERS: PCP Internal Medicine; Visit Provider Internal Medicine | DX: Z13.89 Encounter for screening for other disorder (principal) ==

== ENCOUNTER → 2025-02-06 13:01 | Outpatient (REF) | payer MEDICARE, SELFPAY | LOC: HO.SL 13:01 | PROVIDERS: PCP Internal Medicine; Visit Provider Nurse Practitioner Family | DX: R35.1 Nocturia (principal); R06.83 Snoring; R53.83 Other fatigue; R40.0 Somnolence | CPT/HCPCS: 95806 ==

== ENCOUNTER → 2025-02-06 13:15 | Outpatient (BNV) | payer MEDICARE, SELFPAY | PROVIDERS: PCP Internal Medicine; Visit Provider Internal Medicine | DX: R06.83 Snoring (principal) | CPT/HCPCS: 95806 ==

== ENCOUNTER 2025-02-12 09:45 | Outpatient (REF) | payer MEDICARE, SELFPAY ==
--- NOTE | ~2025-02-12 | US_ITS ---
CLINICAL HISTORY: R35.1 - Nocturia US retroperitoneum Comparison: None provided Findings: Right kidney normal size and echotexture, 10.6 cm length. No hydronephrosis, mass or calculus. Normal color flow. Left kidney normal size and echotexture, 11.1 cm in length. Minimally complex intrarenal cyst with thin wall and partial thin septation without vascular flow in the midpole 2.1 x 1.6 x 1.4 cm, likely Bosniak 2. Normal color flow. Urinary bladder is unremarkable. Prevoid volume 441 mL. Postvoid volume 102 mL. Ureteral jets are visualized bilaterally Prostatomegaly, inferior aspect of the prostate is obscured by rectal gas shadowing, measures 5.8 cm in AP dimension, 4.6 cm in transverse dimension. Impression: 1. Prostatomegaly. 2. Incomplete emptying of urinary bladder, large postvoid residual volume. 3. Left renal cyst. This document has been electronically signed by: Savanah Franco MD on 02/13/2025 11:22:56
== END 2025-02-12 09:46 | disposition home or self-care (01) ==
LOC: HO.US 09:45
PROVIDERS: PCP Internal Medicine; Visit Provider Nurse Practitioner Family
DX: R35.1 Nocturia (principal)
CPT/HCPCS: 76770

== ENCOUNTER → 2025-02-12 09:47 | Outpatient (BNV) | payer MEDICARE, SELFPAY | PROVIDERS: PCP Internal Medicine; Visit Provider Radiology Diagnostic Radiology | DX: N28.1 Cyst of kidney, acquired (principal); N40.1 Benign prostatic hyperplasia with lower urinary tract symptoms | CPT/HCPCS: 76770 ==

== ENCOUNTER 2025-02-20 12:49 | Outpatient (AMB) | payer MEDICARE, SELFPAY ==
--- NOTE | 2025-02-20 12:51 | MHC.PC.OV ---
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 Accompanied by: Self / Same As Patient Allergies No Known Allergies (No Known Allergies*) Allergy (Verified 02/20/25 13:16) Medication List - Last Reconciled 02/20/25 by Jhon Gunderson MD cholecalciferol (vitamin D3) 25 mcg PO DAILY 90 days docusate sodium 100 mg PO BEDTIME Tobacco use date assessed: 02/20/25 Fall risk assessment: No Falls in past year Last assessed Fall Risk: 02/20/25 Dental Screening Dental Screen Date: 02/20/25 Did you have a dental visit in the last 12 months?: Yes Did you have a dental problem in the last 6 months where you did not have access to dental care?: No Was dental information given to patient?: Patient has dentist HPI 6 mmonth f/u HPI Details Patient comes in today for his follow up visit States that he currently feels okay He denies any headaches or dizziness Denies any chest pains, no SOB No nausea/vomiting, no abdominal pain No change in bowel habits States that he still has on and off nocturia/urinary frequency but is currently trying to control this by modifying his drinking habits and limiting his fluid intake at night, as he prefers not to have to take any medications additionally as much as possible He was seen by urology and sent for bladder and renal US, which he had done last week [facility] Medical History (Updated 02/20/25 @ 13:40 by John Gunderson MD) Benign prostatic hyperplasia with lower urinary tract symptoms Overweight (BMI 25.0-29.9) Vitamin D deficiency Tubular adenoma Internal hemorrhoid Left foot pain Surgical History H/O left inguinal hernia repair H/O colonoscopy (~07/04/21) History of appendectomy Family History Father Diabetes HTN (hypertension) Mother No problems noted. Social History Housing: House Alcohol intake: never Patient Tobacco Use Status: Never used Tobacco e-Cigarette/Vaping Use: Never Used Second Hand Smoke Exposure: No service: No Current occupational status: retired Cognitive needs: No Hearing needs: No Vision needs: No Questionnaire PHQ-9 Over the last 2 weeks, how often have you been bothered by any of the following problems? 1. Little interest or pleasure in doing things: not at all 2. Feeling down, depressed, or hopeless: not at all 3. Trouble falling or staying asleep, or sleeping too much: not at all 4. Feeling tired or having little energy: not at all 5. Poor appetite or overeating: not at all 6. Feeling bad about yourself - or that you are a failure or have let yourself or your family down: not at all 7. Trouble concentrating on things, such as reading the newspaper or watching television: not at all 8. Moving or speaking so slowly that other people could have noticed. Or the opposite - being so fidgety or restless that you have been moving around a lot more than usual: not at all 9. Thoughts that you would be better off or of hurting yourself in some way: not at all Total score: 0 Depression Screening Interpretation: Negative Depression Screening Done: Yes 42470 - PHQ-9 Billing: Yes Source: Developed by Drs. Dewayne Gamez, Rafia Strauss, Mynor Arellano and colleagues, with an educational magali from [employer]. Thrive Questionnaire Date Thrive assessed: 02/20/25 I am a: Patient What is your living situation today?: I have a steady place to live Within the past 12 months, did the food you bought not last and you didn't have the money to get more?: I choose not to answer this question Within the past 12 months, did you worry whether your food would run out before you got money to buy more?: Never true Do you have trouble paying for medicines?: No Do you have trouble getting transportation to medical appointments?: No Do you have trouble paying your heating and electricity bill?: No Do you have trouble taking care of your child, family member or friend?: No Do you have trouble with day-to-day activities such as bathing, preparing meals, shopping, managing finances, etc.?: No Are you currently unemployed and looking for a job?: No Are you interested in more education?: I choose not to answer this question Please select the resources that you would like help with: None Currently or been in a relationship where the following occur: I choose not to answer THRIVE Score: 0 AUDIT C Alcohol Use Questionnaire (AUDIT-C) 1. How often do you have a drink containing alcohol?: Never 3. How often do you have six or more drinks on one occasion?: Never Total Score: 0 Score Reviewed/Action Taken: Yes STEVO-7 AMB Questionnaire STEVO-7 Date STEVO - 7 assessed: 02/20/25 Feeling nervous, anxious, or on edge: 0 = Not at all Not being able to stop or control worryin = Not at all Worrying too much about different things: 0 = Not at all Trouble relaxin = Not at all Being so restless that it is hard to sit still: 0 = Not at all Becoming easily annoyed or irritable: 0 = Not at all Feeling afraid as if something awful might happen: 0 = Not at all Total STEVO-7 score (0-4 normal; 5-9 mild; 10-14 moderate; 15-21 severe): 0 Source: Developed by Drs. Dewayne Gamez, Rafia Strauss, Mynor Arellano and colleagues, with an educational magali from [employer]. Review of Systems Const Denies chills, Denies fatigue, Denies fever(s) and Denies headache(s) ENT Denies dysphagia, Denies dizziness, Denies otalgia, Denies headache(s), Denies neck pain, Denies odynophagia and Denies sore throat Card Denies chest pain, Denies rapid heart rate, Denies irregular heart rhythm, Denies palpitations and Denies dyspnea Resp Denies chest congestion, Denies cough and Denies dyspnea GI Denies abdominal pain, Reports constipation (occasionally - relieved when taking OTC stool softeners), Denies dysphagia, Denies heartburn, Denies diarrhea, Denies nausea, Denies odynophagia and Denies vomiting Denies hematuria, Denies difficulty urinating, Denies dysuria, Reports nocturia, Reports urinary frequency and Denies urinary urgency Musc Denies back pain, Denies arthralgias and Denies neck pain Skin/Breast Denies rash Neuro Denies dizziness, Denies headache(s) and Denies paresthesias Endo Denies fatigue and Denies palpitations Physical exam (Primary Care) Vital Signs: Last Vital Signs Pulse 53 02/20/25 12:52 BP 122/84 02/20/25 12:52 Pulse Ox 97 02/20/25 12:52 Oxygen Delivery Method Room Air 02/20/25 12:52 BMI result Body Mass Index 23.9 Tobacco/Smoking Status: Tobacco use Status Tobacco use date assessed 02/20/25 02/20/25 12:56 Patient Tobacco Use Status Never used Tobacco 02/20/25 12:56 e-Cigarette/Vaping Use Never Used 02/20/25 12:56 PHQ-9: PHQ-9 Score PHQ-9: Total score 0 02/20/25 13:16 Depression Screening Interpretation: Negative Thrive Assessment: Date of Thrive Assessment Date Thrive assessed 02/20/25 02/20/25 12:56 Currently or been in a relationship where the following occur: I choose not to answer Const General: no acute distress and alert HENMT Ears: TM's normal bilaterally and EAC's normal Throat: Yes posterior oropharynx normal and Yes tonsils normal (no TP congestion) Neck Neck: Yes supple and No lymphadenopathy Thyroid: Thyroid normal Resp Auscultation: clear to auscultation bilaterally, no rales and no wheezes Cardio Rate: regular rate Rhythm: regular rhythm Heart sounds: no murmurs GI Palpation (GI): Soft to palpation and nontender Auscultation: normal bowel sounds General: Yes no CVA tenderness Back/Spine/Pelvis Back: no CVA tenderness Thoracic/Lumbar Spine: No lumbar spinal tenderness Skin Rashes: no rashes Extrem General: Yes no clubbing, cyanosis or edema Results Reviewed Results Reviewed: Laboratory Tests 08/25/24 08/25/24 08:36 08:39 WBC 4.7 L Hgb 14.8 Hct 43.9 Plt Count 154 L Sodium 139 Potassium 4.0 Creatinine 0.79 Estimated GFR > 60 Fasting Glucose 92 Hemoglobin A1c % 5.6 Calcium 9.1 AST 45 H ALT 76 H Triglycerides 83 Cholesterol 165 LDL Cholesterol, Calc 112 H HDL Cholesterol 37 L Prostate Specific Ag 2.18 25-OH Vitamin D Total 31.8 TSH 0.84 Urine pH 8.0 Ur Specific Munday 1.015 Urine Protein Negative Urine Glucose (UA) Negative Urine Blood Negative Urine Nitrite Negative Ur Leukocyte Esterase Negative Coding Level of Care Code Est Pt Level 4 (05212) Diagnoses Constipation K59.00 Constipation type: unspecified constipation type Impaired fasting glucose R73.01 Vitamin D deficiency E55.9 Elevated LFTs R79.89 Benign prostatic hyperplasia with nocturia N40.1; R35.1 Lower urinary tract symptom detail: nocturia Overweight (BMI 25.0-29.9) E66.3 Additional Codes PHQ-9 - 31000 - PHQ-9 Billing: Yes ([id number]) Assessment & Plan Assessment & Plan (1) Constipation: Code(s): K59.00 - Constipation, unspecified Category: Medical Qualifiers: Constipation type: unspecified constipation type Qualified Code(s): K59.00 - Constipation, unspecified Plan: Patient states that this has been well-controlled lately Reinforced again on increased oral fluids and dietary fiber Continue Docusate 100 mg Q PM PRN (2) Impaired fasting glucose: Code(s): R73.01 - Impaired fasting glucose Category: Medical Plan: Reinforced low calorie/low carb diet His FBS was normal at 92 mg/dl and HgbA1c was normal at 5.6% when last checked earlier this year (3) Vitamin D deficiency: Code(s): E55.9 - Vitamin D deficiency, unspecified Category: Medical Plan: Corrected - continue Vitamin D3 1000 units QD (4) Elevated LFTs: Code(s): R79.89 - Other specified abnormal findings of blood chemistry Category: Medical Plan: Both of his LFTs were again elevated on his labs done earlier this year He has been advised that this is most likely related to his weight (patient does NOT drink alcohol) and should improve with weight loss His abdominal US done in 2022 did show (+) hepatic steatosis Will continue to monitor his LFTs regularly (5) Benign prostatic hyperplasia with lower urinary tract symptoms: Code(s): N40.1 - Benign prostatic hyperplasia with lower urinary tract symptoms Category: Medical Qualifiers: Lower urinary tract symptom detail: nocturia Qualified Code(s): N40.1 - Benign prostatic hyperplasia with lower urinary tract symptoms; R35.1 - Nocturia Plan: Retroperitoneal US done last week (02/13/2025) revealed (+) prostatomegaly, with incomplete emptying of urinary bladder with large postvoid residual volume His most recent PSA was at 2.18 back in August 2024 Patient was started previously on a trial of Tamsulosin but he prefers not to take any Rx if possible Follow up with urology as scheduled (6) Overweight (BMI 25.0-29.9): Code(s): E66.3 - Overweight Category: Medical Plan: Reinforced diet/exercise as tolerated/lose weight Plan To return in 6 months for his next annual physical examination Orders: Orders Comprehensive Spencer. Panel Fast 6 Months E78.00 - Pure hypercholesterolemia, unspecified, Z00.00 - Encounter for general adult medical examination without abnormal findings Vitamin D 25-OH Total 6 Months E55.9 - Vitamin D deficiency, unspecified, Z00.00 - Encounter for general adult medical examination without abnormal findings Prostate Specific Antigen 6 Months N40.0 - Benign prostatic hyperplasia without lower urinary tract symptoms, Z00.00 - Encounter for general adult medical examination without abnormal findings Complete Blood Count Auto Diff 6 Months D64.9 - Anemia, unspecified, Z00.00 - Encounter for general adult medical examination without abnormal findings Lipid Panel 6 Months E78.00 - Pure hypercholesterolemia, unspecified, Z00.00 - Encounter for general adult medical examination without abnormal findings TSH reflex Free T4 6 Months E78.00 - Pure hypercholesterolemia, unspecified, Z00.00 - Encounter for general adult medical examination without abnormal findings UA CC w/rflx Micro + Cult 6 Months R30.0 - Dysuria, Z00.00 - Encounter for general adult medical examination without abnormal findings
[2025-02-20 12:52] VITALS: BP 122/84; PULSE 53; O2SAT 97; BMI 23.9
== END 2025-02-20 14:22 | disposition home or self-care (01) ==
LOC: HO.HMCH 12:50
PROVIDERS: PCP Internal Medicine; Visit Provider Internal Medicine
DX: K59.00 Constipation, unspecified (principal); R73.01 Impaired fasting glucose; E55.9 Vitamin D deficiency, unspecified; R79.89 Other specified abnormal findings of blood chemistry; N40.1 Benign prostatic hyperplasia with lower urinary tract symptoms; R35.1 Nocturia; E66.3 Overweight

== ENCOUNTER → 2025-02-20 12:49 | Outpatient (BNVA) | payer MEDICARE, SELFPAY | PROVIDERS: PCP Internal Medicine; Visit Provider Internal Medicine | DX: K59.00 Constipation, unspecified (principal); R73.01 Impaired fasting glucose; R79.89 Other specified abnormal findings of blood chemistry; N40.1 Benign prostatic hyperplasia with lower urinary tract symptoms; R35.1 Nocturia; E66.3 Overweight; Z68.23 Body mass index [BMI] 23.0-23.9, adult | CPT/HCPCS: 96127; 99212 ==

== ENCOUNTER 2025-03-01 07:15 | Outpatient (AMB) | payer MEDICARE, SELFPAY ==
--- NOTE | 2025-03-01 07:15 | A.OFFVIS_ITS ---
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 Gunderson. He has a past medical history of vitamin-D deficiency, hemorrhoids, and overweight. He is being followed up on today via telehealth for his ongoing lower urinary tract symptoms he has been experiencing. In discussion with the patient today reports to be doing and feeling well. He reports having discontinued his Flomax as he feels since he has limited his fluids 2-3 hours prior to bed his episodes of nocturia have significantly decreased. Recent retroperitoneal ultrasound results were reviewed with the patient today. 02/23 bilateral kidneys with no renal calculus or hydronephrosis. Left kidney with minimally complex intrarenal cyst measuring 2.1 cm likely Bosniak 2 per radiology report. The urinary bladder is unremarkable. Prostatomegaly noted. Prostate measures approximately 64 mL. We did discussed correlation of enlarged prostate with lower urinary tract symptoms. He denies urinary urgency, urinary frequency, incontinence, hematuria, dysuria, foul smelling urine, changes to urinary stream, flank pain, fever, and or chills. We did discussed further treatment options of enlarged prostate and risks and benefits of these treatment options. He currently feels lower urinary tract symptoms he had been experiencing have improved with his lifestyle modifications. All questions were answered. He otherwise offers no other issues or concerns at this time. PSAs are as follows: 08/25.4, 08/26 2.2 [facility] Medical History (Updated 03/01/25 @ 07:57 by DAYANNA Obregon) Benign prostatic hyperplasia with lower urinary tract symptoms Overweight (BMI 25.0-29.9) Vitamin D deficiency Tubular adenoma Internal hemorrhoid Left foot pain Surgical History H/O left inguinal hernia repair H/O colonoscopy (~07/04/21) History of appendectomy Family History Father Diabetes HTN (hypertension) Mother No problems noted. Social History Housing: House Alcohol intake: never Patient Tobacco Use Status: Never used Tobacco e-Cigarette/Vaping Use: Never Used Second Hand Smoke Exposure: No service: No Current occupational status: retired Cognitive needs: No Hearing needs: No Vision needs: No Physical Exam Const General: cooperative Orientation/consciousness: patient oriented x3 Resp Effort & Inspection: able to speak in complete sentences Neuro General: patient oriented x3 Psych Attitude: cooperative Thought content: Normal thought content present Insight: Fair insight present (Psych) Judgement: Fair judgement present (Psych) Telehealth Telehealth Telehealth Platform: [facility] Location of provider rendering services: practice address Location of patient: address on file Patient Identification confirmed using: Name, : Yes Telehealth method: voice only Patient verbally consented to treatment: Yes Patient verbally consented to billing insurance company: Yes Patient informed of any privacy concerns related to visit: Yes Minutes spent on Phone/Video with Pt.: 20 Results Reviewed Results Reviewed: Date of Service: 02/12/25 Procedure(s): US retroperitoneal comp Findings: Right kidney normal size and echotexture, 10.6 cm length. No hydronephrosis, mass or calculus. Normal color flow. Left kidney normal size and echotexture, 11.1 cm in length. Minimally complex intrarenal cyst with thin wall and partial thin septation without vascular flow in the midpole 2.1 x 1.6 x 1.4 cm, likely Bosniak 2. Normal color flow. Urinary bladder is unremarkable. Prevoid volume 441 mL. Postvoid volume 102 mL. Ureteral jets are visualized bilaterally Prostatomegaly, inferior aspect of the prostate is obscured by rectal gas shadowing, measures 5.8 cm in AP dimension, 4.6 cm in transverse dimension. Impression: 1. Prostatomegaly. 2. Incomplete emptying of urinary bladder, large postvoid residual volume. 3. Left renal cyst. Assessment & Plan Assessment & Plan (1) Enlarged prostate: Code(s): N40.0 - Benign prostatic hyperplasia without lower urinary tract symptoms Category: Medical (2) Nocturia: Code(s): R35.1 - Nocturia Category: Medical (3) Benign prostatic hyperplasia with lower urinary tract symptoms: Code(s): N40.1 - Benign prostatic hyperplasia with lower urinary tract symptoms Category: Medical Qualifiers: Lower urinary tract symptom detail: nocturia Qualified Code(s): N40.1 - Benign prostatic hyperplasia with lower urinary tract symptoms; R35.1 - Nocturia Plan Recent retroperitoneal ultrasound results reviewed with the patient today; as noted above. We did discussed potential causes of lower urinary tract symptoms patient is experiencing as well as further treatment options and risks and benefits of these treatment options. We discussed surveillance monitoring of Amado 2 cyst. He currently denies any bothersome urinary issues and feels lifestyle modifications have been helpful. Start finasteride as discussed and prescribed. Will obtain PSA in 4-6 months. Continue to limit fluids 2-3 hours prior to bed to decrease episodes of nocturia. All questions were answered. Follow-up in 4-6 months with PSA and PVR or sooner with any issues, concerns, and or questions. Orders: Orders Prostate Specific Antigen 4 Months N40.1 - Benign prostatic hyperplasia with lower urinary tract symptoms, R35.1 - Nocturia Medications: New finasteride 5 mg PO DAILY 90 tabs 2RF 90 days N32.0 - Bladder-neck obstruction Patient Instructions: The patient had an opportunity to ask questions regarding the treatment plan. All questions were answered. Physical exam, labs, and imaging were discussed and reviewed in detail. As well as risks, benefits, and discussion of treatment choices. No major barriers to understanding were identified. The patient expressed understanding and agreement with the above treatment plan. The patient was made aware they should contact our office by phone for worsening of their current condition, the appearance of new symptoms, or with any questions or concerns. Compliance is encouraged with any medications and follow up testing that is ordered. It is a privilege to be allowed the opportunity to participate in? your urological care.? Again, if you have any questions or c oncerns If you have any questions or concerns please do not hesitate to contact me. The office is [phone]. This note is constructed using voice recognition software. While every effort has been made to ensure accuracy jewel supervisor errors may have been included. Yours sincerely, GEORGE Obregon Coding Level of Care Code Tele Est Pt Level 4 (72168) Diagnoses Enlarged prostate N40.0 Nocturia R35.1 Benign prostatic hyperplasia with nocturia N40.1; R35.1 Lower urinary tract symptom detail: nocturia
== END 2025-03-01 09:39 | disposition home or self-care (01) ==
LOC: HO.HUSH 07:15
PROVIDERS: PCP Internal Medicine; Visit Provider Nurse Practitioner Family
DX: N40.1 Benign prostatic hyperplasia with lower urinary tract symptoms (principal); R35.1 Nocturia
CPT/HCPCS: 99214

== ENCOUNTER 2025-06-23 08:51 | Outpatient (REF) | payer MEDICARE, SELFPAY ==
[2025-06-23 11:08] LABS: Prostate Specific Antigen 0.67 ng/mL (<0.05-4.0)
== END 2025-06-23 08:52 | disposition home or self-care (01) ==
LOC: HO.LAB 08:51
PROVIDERS: PCP Internal Medicine; Visit Provider Nurse Practitioner Family
DX: Z12.5 Encounter for screening for malignant neoplasm of prostate (principal); N40.1 Benign prostatic hyperplasia with lower urinary tract symptoms; R35.1 Nocturia
CPT/HCPCS: 36415; 84153

== ENCOUNTER 2025-06-25 08:27 | Outpatient (AMB) | payer MEDICARE, SELFPAY ==
--- NOTE | 2025-06-25 08:28 | A.OFFVIS_ITS ---
Intake Visit Reasons: 4m/PSA/PVR Intake Note: Patient presents for 6mo follow up Urology Medications: Finasteride Blood Thinner: none Last PVR: 36ml's PVR:12 mls Labs done :06/23/25 :PSA 0.67 Web Marketing Analyst Required: No Accompanied by: Self / Same As Patient Allergies No Known Allergies (No Known Allergies*) Allergy (Verified 06/25/25 08:56) Medication List - Last Reconciled 06/25/25 by GEORGE Obregon bisacodyl (Dulcolax (bisacodyl)) 20 mg (4 x 5 mg) PO ONCE 1 day cholecalciferol (vitamin D3) 25 mcg PO DAILY 90 days docusate sodium 100 mg PO BEDTIME finasteride 5 mg PO DAILY 90 days polyethylene glycol 3350 (Miralax) 238 grams PO ONCE 1 day HPI Comments Details: Bishnu is a very pleasant 69-year-old male patient of Dr. Gunderson. He has a past medical history of vitamin-D deficiency, hemorrhoids, and overweight. He presents to the office today for follow-up of his lower urinary tract symptoms. In discussion with the patient today he reports to be doing and feeling well. He does continue to experience episodes of nocturia as well as urinary frequency however feels these symptoms are manageable independently. He reports believing episodes of nocturia are caused by his increased fluids prior to bed. We did discussed importance of limiting fluids 2-3 hours prior to bed to decrease episodes of nocturia. He does report compliance with finasteride as prescribed. Previous workup has included a retroperitoneal ultrasound 02/23 noting bilateral kidneys with no renal calculus or hydronephrosis. Left kidney with minimally complex intrarenal cyst measuring 2.1 cm likely Bosniak 2 per radiology report. The urinary bladder is unremarkable. Prostatomegaly noted. Prostate measures approximately 64 mL. He denies urinary urgency, urinary frequency, incontinence, hematuria, dysuria, foul smelling urine, changes to urinary stream, flank pain, fever, and or chills. We did discuss potential causes of nocturia as well as urinary frequency. We did discuss further treatment options and risks and benefits of these treatment options. Unable to obtain urine for urinalysis today as patient unable to void however PVR 12 mL. All questions were answered. He otherwise offers no other issues or concerns at this time. Labs are as follows: PSAs are as follows: 08/25 1.4, 08/26 2.2, 06/26 0.7 [facility] Medical History (Updated 03/01/25 @ 07:57 by Sasha Rocha [facility]) Benign prostatic hyperplasia with lower urinary tract symptoms Overweight (BMI 25.0-29.9) Vitamin D deficiency Tubular adenoma Internal hemorrhoid Left foot pain Surgical History H/O left inguinal hernia repair H/O colonoscopy (~07/04/21) History of appendectomy Family History Father Diabetes HTN (hypertension) Mother No problems noted. Social History Housing: House Alcohol intake: never Patient Tobacco Use Status: Never used Tobacco e-Cigarette/Vaping Use: Never Used Second Hand Smoke Exposure: No service: No Current occupational status: retired Cognitive needs: No Hearing needs: No Vision needs: No Review of Systems Const All systems reviewed & are unremarkable except as noted in HPI and below Physical Exam Const General: cooperative, healthy appearing, comfortable, no acute distress, well developed, alert and awake Orientation/consciousness: patient oriented x3 Limitations: no limitations HEENT Head: Yes normal to inspection, Yes normocephalic and Yes atraumatic Ears: hearing grossly normal bilaterally Eyes General: appearance normal, both eyes and all related structures Neck Neck: Yes normal visual inspection and Yes trachea midline Chest Chest palpation & inspection: normal inspection of the chest Resp Effort & Inspection: normal respiratory effort and able to speak in complete sentences Cardio Rate: regular rate GI Inspection: Yes normal to inspection General: Yes no CVA tenderness Back/Spine/Pelvis Back: no CVA tenderness Skin General skin exam: no rashes or lesions noted Neuro General: patient oriented x3 Extrem General: Yes normal to inspection Psych Appearance: grossly normal and well kempt Mental Status: mental status grossly normal Speech and movement: Normal speech and movement present and Clear speech present Affect: normal affect Attitude: cooperative Thought process: Normal thought process present Thought content: Normal thought content present Insight: Fair insight present (Psych) Judgement: Fair judgement present (Psych) Office Procedures Post Void Residual Post Residual Void Post Void Residual (PVR): 12 [id number] Void Residual by ultrasound Assessment & Plan Assessment & Plan (1) Urinary frequency: Code(s): R35.0 - Frequency of micturition Category: Medical (2) Nocturia: Code(s): R35.1 - Nocturia Category: Medical (3) Benign prostatic hyperplasia with lower urinary tract symptoms: Code(s): N40.1 - Benign prostatic hyperplasia with lower urinary tract symptoms Category: Medical Qualifiers: Lower urinary tract symptom detail: nocturia Qualified Code(s): N40.1 - Benign prostatic hyperplasia with lower urinary tract symptoms; R35.1 - Nocturia (4) Enlarged prostate: Code(s): N40.0 - Benign prostatic hyperplasia without lower urinary tract symptoms Category: Medical Plan Unable to obtain urine for urinalysis today as patient unable to void however PVR 12 mL. We did discuss further treatment options of urinary frequency and nocturia; we discussed risks and benefits of these treatment options. Will continue with surveillance monitoring at this time as patient feels he is managing these symptoms well independently. Continue finasteride however will decrease to Wednesday. Most recent PSA results reviewed with the patient today; as noted above. We did discussed importance of limiting fluids 2-3 hours prior to bed to decrease episodes of nocturia. All questions were answered. Follow-up in 6 months with PSA and PVR; or sooner with any issues, concerns, and or questions. Orders: Orders Prostate Specific Antigen 06/07/25 N40.0 - Benign prostatic hyperplasia without lower urinary tract symptoms, Z00.00 - Encounter for general adult medical ex amination without abnormal findings Prostate Specific Antigen 6 Months N40.0 - Benign prostatic hyperplasia without lower urinary tract symptoms, N40.1 - Benign prostatic hyperplasia with lower urinary tract symptoms, R35.0 - Frequency of micturition, R35.1 - Nocturia Patient Instructions: The patient had an opportunity to ask questions regarding the treatment plan. All questions were answered. Physical exam, labs, and imaging were discussed and reviewed in detail. As well as risks, benefits, and discussion of treatment choices. No major barriers to understanding were identified. The patient expressed understanding and agreement with the above treatment plan. The patient was made aware they should contact our office by phone for worsening of their current condition, the appearance of new symptoms, or with any questions or concerns. Compliance is encouraged with any medications and follow up testing that is ordered. It is a privilege to be allowed the opportunity to participate in? your urological care.? Again, if you have any questions or concerns If you have any questions or concerns please do not hesitate to contact me. The office is [phone]. This note is constructed using voice recognition software. While every effort has been made to ensure accuracy psychiatric nurse errors may have been included. Yours sincerely, GEORGE Obregon Coding Level of Care Code Complex visit Add On G2211 Diagnoses Urinary frequency R35.0 Nocturia R35.1 Benign prostatic hyperplasia with nocturia N40.1; R35.1 Lower urinary tract symptom detail: nocturia Enlarged prostate N40.0 CPT Codes Post Residual Void - PVR CPT Code: 09917-[id number] Void Residual by ultrasound ([id number])
== END 2025-06-25 09:19 | disposition home or self-care (01) ==
LOC: HO.HUSH 08:28
PROVIDERS: PCP Internal Medicine; Visit Provider Nurse Practitioner Family
DX: N40.1 Benign prostatic hyperplasia with lower urinary tract symptoms (principal); R35.0 Frequency of micturition; R35.1 Nocturia; N40.0 Benign prostatic hyperplasia without lower urinary tract symptoms
CPT/HCPCS: 99213; G2211

== ENCOUNTER → 2025-06-25 08:27 | Outpatient (BNVA) | payer MEDICARE, SELFPAY | PROVIDERS: PCP Internal Medicine; Visit Provider Nurse Practitioner Family | DX: N40.1 Benign prostatic hyperplasia with lower urinary tract symptoms (principal); N13.8 Other obstructive and reflux uropathy; R35.1 Nocturia; R35.0 Frequency of micturition | CPT/HCPCS: 51798; 99212 ==

== ENCOUNTER 2025-07-05 07:04 | Day surgery (SDC) | payer MEDICARE, SELFPAY ==
--- NOTE | 2025-07-03 08:56 | P.CONAN_ITS ---
Documented by User: Clarice Mayen NP 07/03/25 08:56 HPI - Anesthesia Eval Consult details Narrative: 69 yr old male for colonoscopy [facility] Active Problems Active Problems: All Active Problems (Updated 03/01/25 @ 07:57 by Sasha Rocha [facility]) Enlarged prostate (Acute) Benign prostatic hyperplasia with lower urinary tract symptoms (Acute) Nocturia (Acute) Overweight (BMI 25.0-29.9) (Acute) Elevated LFTs (Acute) Annual physical exam (Acute) Vitamin D deficiency (Acute) Impaired fasting glucose (Acute) Tubular adenoma (Acute) Internal hemorrhoid (Acute) Constipation (Acute) Urinary frequency (Acute) Left foot pain (Acute) Mass in the abdomen (Acute) Past Medical History Medical History Benign prostatic hyperplasia with lower urinary tract symptoms Overweight (BMI 25.0-29.9) Vitamin D deficiency Tubular adenoma Internal hemorrhoid Left foot pain Family History Family History Father Diabetes HTN (hypertension) Mother No problems noted. Family history of problems with anesthesia: No Surgical History Surgical History H/O left inguinal hernia repair H/O colonoscopy (~07/04/21) History of appendectomy History of Problems with Anesthesia: No Social History Social History Housing: House Are you a primary director of home care hospice to a significant other at home: No Do you presently have visiting nurse or other home services: No Alcohol intake: never Patient Tobacco Use Status: Never used Tobacco e-Cigarette/Vaping Use: Never Used Second Hand Smoke Exposure: No Have you been hit, kicked, punched, or otherwise hurt by someone within the past year? If so, by whom?: No Are you DNR?: No Advance Directives: No Advance Directives Information Provided: Yes service: No Current occupational status: retired Cognitive needs: No Hearing needs: No Vision needs: No Meds Allergies Allergy/AdvReac Type Severity Reaction Status Date / Time No Known Allergies (No Known Allergy Verified 07/05/25 07:18 Allergies*) Assessment and Plan Final Anesthetic Review Family History of Problems with Anesthesia: No History of Problems with Anesthesia: No Documented by User: Yvonne Matthews MD 07/05/25 07:57 PMFSH Past Medical History Medical History Benign prostatic hyperplasia with lower urinary tract symptoms Overweight (BMI 25.0-29.9) Vitamin D deficiency Tubular adenoma Internal hemorrhoid Left foot pain Family History Family History Father Diabetes HTN (hypertension) Mother No problems noted. Surgical History Surgical History H/O left inguinal hernia repair H/O colonoscopy (~07/04/21) History of appendectomy Social History Social History Housing: House Are you a primary director of home care hospice to a significant other at home: No Do you presently have visiting nurse or other home services: No Alcohol intake: never Patient Tobacco Use Status: Never used Tobacco e-Cigarette/Vaping Use: Never Used Second Hand Smoke Exposure: No Have you been hit, kicked, punched, or otherwise hurt by someone within the past year? If so, by whom?: No Are you DNR?: No Advance Directives: No Advance Directives Information Provided: Yes service: No Current occupational status: retired Cognitive needs: No Hearing needs: No Vision needs: No Meds Allergies Allergy/AdvReac Type Severity Reaction Status Date / Time No Known Allergies (No Known Allergy Verified 07/05/25 07:18 Allergies*) Exam Airway Mallampati Class: III TM Dist: >3cm Neck ROM: Full Partial: Upper Loose/Missing/Broken Teeth: Yes and Upper Heart: RRR Lungs: CTA Assessment and Plan Assessment Anesthesia Assessment: Anesthesia Plan Discussed and Chart Reviewed Final Anesthetic Review NPO: Yes ASA Class: II Final Preanesthetic Review: Meds/Allgs Chart Reviewed, Consent Obtained/Reviewed and Anes Risks/Benef Reviewed Patient Risk: Low Procedure Risk: Low Anesthetic Plan Anesthetic Plan: MAC: Disposition: Standard PACU
[2025-07-03 13:29] VITALS: BMI 23.8
--- NOTE | 2025-07-05 06:42 | MHC.SHP ---
Pre-Procedural Eval Section A - 24 Hr Update-Section A only Date of Service: 07/05/25 Section B - Complete if H&P > 30 days Chief Complaint: Personal history of colon polyps, unspecified Relevant Family History (Specify if Yes): No Relevant Social History: None Present Medications: see Short Stay Collaborative assessment Medical History: Significant History (Internal hemorrhoid Left foot pain Tubular adenoma) History of Previous Operations: Relevant previous surgery/procedure and date(s) ( H/O colonoscopy H/O left inguinal hernia repair History of appendectomy) Allergies: Allergies Allergy/AdvReac Type Severity Reaction Status Date / Time No Known Allergies (No Known Allergy Verified 06/25/25 08:56 Allergies*) Review of Systems Sugical H&P ROS: Negative: Constitution, Cardiovascular, Respiratory, Neurological, Psychiatric, Hem-Onc, Allergic/Immunologic, Gastrointestinal, Genitourinary, Musculoskeletal, Integumentary, Endocrine and Eyes/Ears/Nose/Throat Exam Surgical H&P Exam: Normal: HEENT, Normal: Heart, Normal: Lungs, Normal: Extremities, Normal: Abdomen, Normal: Skin and Normal: Neurological Plan Diagnosis/Plan: Unchanged I have reviewed the history and physical and performed a pertinent physical examination on my patient. No changes have occurred unless specified. Time Spent With Patient Time: Total time managing care of this patient today ____ minutes.
[2025-07-05 07:16] VITALS: BMI 23.5
[2025-07-05] MEDS: Lactated Ringers 1,000 ML 100 ML IVCONT (07:21)
[2025-07-05 07:25] VITALS: BP 146/84; PULSE 91; RESP 18; TEMP 36.6; O2SAT 97
--- NOTE | 2025-07-05 08:01 | HO.OPN-COLON ---
Colonoscopy Operative Note Operative Note Date of Service: 07/05/25 Narrative: Operative Information Procedure Description: Colonoscopy Indication: Screening Anesthesia: MAC COLONOSCOPY Instrument: Olympus variable stiffness pediatric scope 190L Colonoscopy Monitoring: Vital signs and clinical assessment, continuous EKG monitoring, Pulse oximetry, Carbon Dioxide monitoring and blood pressure monitoring were done throughout the procedure. Colon withdrawal time was 7 minutes. Procedure: The patient was placed in the left lateral decubitis position and pre-procedure medications were administered. After a digital rectal examination of the ano-rectum, the video colonoscope was inserted into the rectum and advanced through the colon to the cecum/TI. The colonoscope was slowly withdrawn in a retrograde panoramic fashion and the colon mucosa was carefully examined including a retroflexed view of the rectum. Findings and interventions are described below. Procedure Difficulty: easy Findings: Terminal Ileum-normal Cecum:normal Ascending Colon: normal Transverse Colon - 10 mm sessile polyp removed with cold snare Descending Colon:normal Sigmoid Colon: normal Rectum: Retroflexion with small internal hemorrhoids seen, grade I Anorectum - normal Intervention: cold snare Colon preparation: Sheldahl Bowel Preparation Scale Right colon; 2- few areas of fair prep Transverse colon: 2 Left colon; 2 (0 = Unprepared colon segment with mucosa not seen due to solid stool that cannot be cleared. 1 = Portion of mucosa of the colon segment seen, but other areas of the colon segment not well seen due to staining, residual stool and/or opaque liquid. 2 = Minor amount of residual staining, small fragments of stool and/or opaque liquid, but mucosa of colon segment seen well. 3 = Entire mucosa of colon segment seen well with no residual staining, small fragments of stool or opaque liquid) Impression and Post Procedure Diagnosis: colon polyp x 1 internal hemorrhoids Plan: High fiber diet leaflet Avoid straining at stool, epsom salts and sitz bath, anusol supps or cream Repeat Colonoscopy in 5 years due to polyp and some areas of fair prep on right or earlier if clinically indicated Above findings were reviewed with the patient and relevant handouts were provided if indicated.
[2025-07-05 08:04] VITALS: BP 89/42; PULSE 69; RESP 18; TEMP 36.4; O2SAT 98
[2025-07-05 08:15] VITALS: BP 97/53; PULSE 65; RESP 18; TEMP 36.4; O2SAT 96
== END 2025-07-05 09:05 | disposition home or self-care (01) ==
PROVIDERS: PCP Internal Medicine; Visit Provider Internal Medicine Gastroenterology
PROC: 0DJD8ZZ Inspection of Lower Intestinal Tract, Via Natural or Artificial Opening Endoscopic (ICD-10-PCS; CPT 45378; principal; 2025-07-05 07:30)
DX: Z12.11 Encounter for screening for malignant neoplasm of colon (principal); Z86.0101 Personal history of adenomatous and serrated colon polyps; K59.00 Constipation, unspecified; K64.0 First degree hemorrhoids; D12.3 Benign neoplasm of transverse colon
CPT/HCPCS: 45385; 88305; J2003; J2704

== ENCOUNTER → 2025-07-05 07:04 | Outpatient (BNV) | payer MEDICARE, SELFPAY | PROVIDERS: PCP Internal Medicine; Visit Provider Internal Medicine Gastroenterology | DX: Z12.11 Encounter for screening for malignant neoplasm of colon (principal); K63.5 Polyp of colon; K64.0 First degree hemorrhoids | CPT/HCPCS: 45385 ==